=== PATIENT | male | born 1950 | race Caucasian/White ===

== ENCOUNTER → 2016-06-07 | Outpatient (CLI) | payer MEDICAID ==
[2016-06-07 07:53] LABS: Basophils # (A) 0.1 k/uL (0-0.2); Basophils % (A) 2 %; CH 31.7; CHCM 35.1; Eosinophils # (A) 0.2 k/uL (0-0.7); Eosinophils % (A) 3 %; HCT 45.4 % (39.0-53.0); HDW 2.69; HGB 15.1 gm/dL (13.0-17.5); Luc # (Auto) 0.07; Luc % (Auto) 1; Lymphocytes # (A) 2.1 k/uL (1.0-4.8); Lymphocytes % (A) 37 %; MCH 30.3 pg (25.0-35.0); MCHC 33.3 g/dL (31.0-37.0); MCV 90.9 fL (80.0-100.0); Mean Platelet Volume 6.9; Monocytes # (A) 0.3 k/uL (0-1.0); Monocytes % (A) 5 %; Neutrophils % (A) 52 %; RDW 12.9 % (11.5-15.5); WBC 5.7 k/uL (3.8-10.6); WBC (Perox) 5.84
[2016-06-07 10:30] LABS: Hemoglobin A1C 5.4 % (4.2-6.1)
[2016-06-07 12:29] LABS: ALT 63 U/L (21-72); AST 33 U/L (17-59); Alkaline Phosphatase 60 U/L (38-126); Anion Gap 12 mmol/L; Blood Urea Nitrogen 22 mg/dL (9-20); Calcium 9.4 mg/dL (8.4-10.2); Carbon Dioxide 29 mmol/L (22-30); Chloride 100 mmol/L (98-107); Cholesterol 182 mg/dL (<200); Glucose 118 mg/dL (74-99); HDL Cholesterol 80 mg/dL (40-60); Non-African American GFR(MDRD) >60 (>60 ml/min/1.73 sqM); Potassium 4.7 mmol/L (3.5-5.1); Sodium 141 mmol/L (137-145); Total Bilirubin 0.8 mg/dL (0.2-1.3); Total Protein 7.3 g/dL (6.3-8.2); Triglycerides 92 mg/dL (<150)
[2016-06-07 12:58] LABS: Prostate Specific Antigen 5.19 ng/mL (0.00-4.00)
== END | disposition home or self-care (01) ==
LOC: LABWHC1 07:21
PROVIDERS: ATTEND Internal Medicine Geriatric Medicine
DX: K21.9 Gastro-esophageal reflux disease without esophagitis (principal); E78.00 Pure hypercholesterolemia, unspecified; R73.9 Hyperglycemia, unspecified; N40.0 Benign prostatic hyperplasia without lower urinary tract symptoms; R00.1 Bradycardia, unspecified; M10.9 Gout, unspecified
CPT/HCPCS: 36415; 80053; 80061; 83036; 84153; 84439; 84443; 84550; 85025

== ENCOUNTER → 2017-02-14 | Outpatient (CLI) | payer MEDICAID ==
[2017-02-14 08:11] LABS: Basophils # (A) 0.1 k/uL (0-0.2); Basophils % (A) 1 %; CH 32.7; CHCM 34.8; Eosinophils # (A) 0.2 k/uL (0-0.7); Eosinophils % (A) 3 %; HDW 2.58; Luc % (Auto) 1; Lymphocytes # (A) 2.1 k/uL (1.0-4.8); Lymphocytes % (A) 24 %; MCH 31.4 pg (25.0-35.0); MCHC 33.3 g/dL (31.0-37.0); MCV 94.3 fL (80.0-100.0); Monocytes # (A) 0.4 k/uL (0-1.0); Monocytes % (A) 4 %; Neutrophils # (A) 5.8 k/uL (1.3-7.7); Neutrophils % (A) 67 %; RBC 5.09 m/uL (4.30-5.90); RDW 13.9 % (11.5-15.5); WBC 8.7 k/uL (3.8-10.6); WBC (Perox) 8.58
[2017-02-14 08:25] LABS: ALT 52 U/L (21-72); AST 23 U/L (17-59); Alkaline Phosphatase 63 U/L (38-126); Anion Gap 9 mmol/L; Blood Urea Nitrogen 19 mg/dL (9-20); Calcium 9.3 mg/dL (8.4-10.2); Carbon Dioxide 29 mmol/L (22-30); Chloride 101 mmol/L (98-107); Cholesterol 162 mg/dL (<200); Glucose 115 mg/dL (74-99); HDL Cholesterol 63 mg/dL (40-60); Non-African American GFR(MDRD) >60 (>60 ml/min/1.73 sqM); Potassium 4.3 mmol/L (3.5-5.1); Sodium 139 mmol/L (137-145); Total Bilirubin 0.9 mg/dL (0.2-1.3); Total Protein 7.2 g/dL (6.3-8.2)
[2017-02-14 12:29] LABS: Hemoglobin A1C 5.6 % (4.2-6.1)
== END | disposition home or self-care (01) ==
LOC: LABWHC1 07:51
PROVIDERS: ATTEND Internal Medicine Geriatric Medicine
DX: E78.00 Pure hypercholesterolemia, unspecified (principal); K21.9 Gastro-esophageal reflux disease without esophagitis; I10 Essential (primary) hypertension; R73.9 Hyperglycemia, unspecified; R00.1 Bradycardia, unspecified
CPT/HCPCS: 36415; 80053; 80061; 83036; 84439; 84443; 85025

== ENCOUNTER → 2017-02-21 | Outpatient (CLI) | payer MEDICAID ==
--- NOTE | 2017-02-21 08:53 | US ---
EXAMINATION TYPE: US abdomen complete DATE OF EXAM: 02/21/2017 COMPARISON: NONE CLINICAL HISTORY: RUQ Abdominal Tenderness R10.813. Cholecystectomy EXAM MEASUREMENTS: Liver Length: 19.1 cm Gallbladder Wall: Surgically absent CBD: 0.4 cm Spleen: 11.7 cm Right Kidney: 11.5 x 5.1 x 4.6 cm Left Kidney: 12.2 x 6.4 x 5.4 cm Pancreas: Obscured by bowel gas Liver: Coarse, heterogeneous echotexture. Enlarged Gallbladder: Surgically absent Evidence for sonographic De La O's sign: No CBD: wnl as visualized, distal portion obscured by bowel gas Spleen: wnl Right Kidney: No hydronephrosis or masses seen Left Kidney: No hydronephrosis or masses seen Upper IVC: wnl Abd Aorta: wnl The intrahepatic portion of the IVC and visualized portions of the proximal abdominal aorta are withi n normal limits. Common bile duct is unremarkable. The spleen is unremarkable. Kidneys are symmetric and free of hydronephrosis. No renal lesions are seen. IMPRESSION: 1. Fatty liver with hepatomegaly.
== END | disposition home or self-care (01) ==
LOC: RADUSWWP 07:51
PROVIDERS: ATTEND Internal Medicine Geriatric Medicine
DX: K76.0 Fatty (change of) liver, not elsewhere classified (principal); R10.813 Right lower quadrant abdominal tenderness
CPT/HCPCS: 76700

== ENCOUNTER 2017-04-01 09:42 | Day surgery (SDC) | payer MEDICAID ==
[2017-03-29 08:38] VITALS: BMI 34.2
[2017-04-01 11:20] VITALS: TEMP 98.4
[2017-04-01] MEDS ORDERED: LIDOCAINE 1% 20 ML VIAL (10MG/ML) FOR IV START INTRADERMA ONE (11:25)
[2017-04-01] MEDS: LACTATED RINGERS 1,000 ML IV SCH ×2 (11:27→12:18)
[2017-04-01 11:29] LABS: Glucose,Whole Blood 96 mg/dL (75-99)
[2017-04-01] MEDS ORDERED: PROPOFOL 10 MG/ML 20 ML VIAL IV ONE (12:20)
--- NOTE | 2017-04-01 12:24 | P.GSHP ---
History of Present Illness H&P Date: 04/01/17 Chief Complaint: Screening colonoscopy This is a 66-year-old male referred from Dr. Meek. Patient presents today for screening colonoscopy. He denies any significant complaints. 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 Past Anesthesia/Blood Transfusion Reactions: No Reported Reaction Smoking Status: Never smoker - Past Family History Mother Family Medical History: No Reported History Medications and Allergies Home Medications Medication Instructions Recorded Confirmed Type Irbesartan/Hydrochlorothiazide 1 each PO DAILY 06/21/14 04/01/17 History [Avalide 300-12.5 mg Tablet] Rosuvastatin Calcium [Crestor] 20 mg PO DAILY 06/21/14 03/29/17 History Aspirin [Adult Low Dose Aspirin EC] 81 mg PO DAILY 03/31/15 03/29/17 History metFORMIN HCL [Glucophage] 500 mg PO BID 03/29/17 03/29/17 History Allergies Allergy/AdvReac Type Severity Reaction Status Date / Time No Known Allergies Allergy Verified 03/29/17 08:16 Surgical - Exam Vital Signs Temp Pulse Resp BP Pulse Ox 98.4 F 65 20 147/86 97 04/01/17 11:11 04/01/17 11:11 04/01/17 11:11 04/01/17 11:11 04/01/17 11:11 - General well developed, no distress - Eyes PERRL - ENT normal pinna - Neck no masses - Respiratory normal expansion - Cardiovascular Rhythm: regular - Abdomen Abdomen: soft, non tender Assessment and Plan Assessment: We'll perform screening colonoscopy.
--- NOTE | 2017-04-01 12:38 | P.OP ---
Date of Procedure: 04/01/17 Preoperative Diagnosis: Screening colonoscopy Postoperative Diagnosis: Screening colonoscopy Procedure(s) Performed: Colonoscopy Anesthesia: MAC Surgeon: Jj Gardner Pathology: none sent Condition: stable Disposition: PACU Description of Procedure: PROCEDURE: The patient was placed on the endoscopy table in the lateral position. Digital rectal examination was performed which revealed no abnormalities. The prostate was symmetrical without nodules. Flexible colonoscope was then placed in the patient's anus and passed throughout the entire colon. The ileocecal valve was visualized. The cecum, ascending, transverse, descending and sigmoid colon were normal. The rectum was normal as well. There were no masses, polyps or diverticula noted in the entire colon. SUMMARY OF FINDINGS: Normal colonoscopy.
[2017-04-01 12:46] VITALS: RESP 16
[2017-04-01 12:47] LABS: Glucose,Whole Blood 114 mg/dL (75-99)
[2017-04-01 12:55] VITALS: BP 134/79; PULSE 79
== END 2017-04-01 13:09 | disposition home or self-care (01) ==
LOC: ORWHC2ENDO 09:42
PROVIDERS: ATTEND Surgery
DX: Z12.11 Encounter for screening for malignant neoplasm of colon (principal); I10 Essential (primary) hypertension; E78.5 Hyperlipidemia, unspecified; E11.9 Type 2 diabetes mellitus without complications; Z79.82 Long term (current) use of aspirin; Z79.84 Long term (current) use of oral hypoglycemic drugs; Z79.899 Other long term (current) drug therapy; Z98.1 Arthrodesis status
CPT/HCPCS: G0121; J2704

== ENCOUNTER → 2017-12-17 | Outpatient (CLI) | payer MEDICAID ==
--- NOTE | 2017-12-17 15:20 | XR ---
EXAMINATION TYPE: XR lumbosacral spine min 4V DATE OF EXAM: 12/17/2017 COMPARISON: None HISTORY: Low back pain TECHNIQUE: Five-view lumbar spine FINDINGS: There 5 lumbar-type vertebral bodies. Pedicles are intact T12 ribs are rudimentary. Mild fa cet degenerative changes present L4-5 L5-S1. Disc space narrowing is L4-5 L5-S1. Remaining disc heigh ts are preserved. Vertebral body heights are preserved. IMPRESSION: 1. Mild degenerative disc changes and facet changes lower lumbar spine.
== END | disposition home or self-care (01) ==
LOC: RADXRMAIN 08:15
PROVIDERS: ATTEND Internal Medicine Geriatric Medicine
DX: M47.897 Other spondylosis, lumbosacral region (principal)
CPT/HCPCS: 72110

== ENCOUNTER → 2018-01-28 | Outpatient (CLI) | payer MEDICAID ==
--- NOTE | 2018-01-28 11:14 | MR ---
EXAMINATION TYPE: MR lumbar spine wo con DATE OF EXAM: 01/28/2018 COMPARISON: NONE HISTORY: Low back pain TECHNIQUE: T1 and T2 axial and sagittal images of the lumbar spine are submitted. FINDINGS: There is no abnormal signal seen within the visualized spinal cord or paraspinal soft tissu es. Marrow signal is heterogeneous. There is a vertebral body hemangioma T12 and L2. At L1-2 there is circumferential disc bulging is seen. There is mild effacement of thecal sac but no spinal central stenosis or foraminal encroachment. At L2-3 there is degenerative disc disease with mild circumferential disc bulging but no central sten osis. Neural foramina demonstrate no evidence of encroachment. At L3-4 there is degenerative disc disease. There is broad-based central and right paracentral disc b ulging moderate effacement of thecal sac and mild central stenosis. Advanced facet arthropathy and li gamentum flavum hypertrophy are noted and there is moderate right-sided and mild left-sided foraminal encroachment. At L4-5 there is there is a grade 1 anterolisthesis which is likely secondary to severe facet arthrop athy with hypertrophy of the ligamentum flavum. Broad-based central disc bulging results in mild to m oderate central stenosis. Mild bilateral foraminal encroachment. At L5-S1 there is there is facet arthropathy with no disc herniation or canal stenosis. Neural forami na are patent. IMPRESSION: 1. Multilevel degenerative disc disease with multilevel disc bulging. Findings result in mild central stenosis L3-L4 and mild to moderate central stenosis L4-L5. 2. Grade 1 anterolisthesis L4 and L5 appears degenerative. 3. Nonspecific heterogeneous marrow signal be seen with marrow redistribution. If there is a history of malignancy metastasis would be in the differential diagnosis but is felt less likely correlate cli nically. Correlate clinically to exclude lymphoproliferative disorder or blood dyscrasia.
== END | disposition home or self-care (01) ==
LOC: RADMRIMAIN 08:14
PROVIDERS: ATTEND Orthopaedic Surgery Orthopaedic Surgery of the Spine
DX: M48.061 Spinal stenosis, lumbar region without neurogenic claudication (principal); M51.26 Other intervertebral disc displacement, lumbar region; M43.16 Spondylolisthesis, lumbar region; M51.36 Other intervertebral disc degeneration, lumbar region
CPT/HCPCS: 72148

== ENCOUNTER → 2018-01-28 | Outpatient (CLI) | payer MEDICAID ==
--- NOTE | 2018-01-28 16:34 | CONS ---
CONSULTATION Consultation note for sleep apnea. 67-year-old male patient. Primary of Dr. Meek. Referred to me for sleep apnea evaluation. is very much concerned of sleep apnea knowing that the patient snores and has been having excessive fatigue and daytime sleepiness. The patient is going to bed around 9 p.m., wakes up 6:15 am in the morning. It takes him some time more than 30 minutes to fall asleep. He wakes up occasionally middle of the night around 2-3 times to urinate. He does not fall asleep while driving or performing the activities of day-to-day life. He is suffering from sciatica and is undergoing physical therapy for now. He also has history of hypertension, hyperlipidemia. No recent weight gain. Comorbid conditions include hypertension and hyperlipidemia. PAST MEDICAL HISTORY: Hypertension, hyperlipidemia, sciatica. SURGICAL HISTORY: Includes spinal fusion involving the cervical spine, rotator cuff surgery on the left shoulder and cholecystectomy. ALLERGIES: Not known. OUTPATIENT MEDICATION LIST: Includes Crestor, Avalide and he was given a prednisone burst taper regarding his sciatica. SOCIAL HISTORY: The patient is a nonsmoker. No history of alcohol. No IV drugs. FAMILY HISTORY: Negative for sleep apnea. REVIEW OF SYSTEMS: 12-point review of system was done. Positive findings are mentioned in history of present illness. PHYSICAL EXAMINATION: BP is 117/72, pulse 66, respirations 16, temperature 98.2, saturation 97% on room air. Weight is 228. Height is 5 feet 6 inches, neck size 18-1/2 inches. GENERAL APPEARANCE: Calm, comfortable. HEAD: Atraumatic, normocephalic. NECK: Supple. Mallampati class 3. There is no goiter or neck masses. LUNGS: Clear to auscultation. HEART: Sounds regular rate and rhythm. Normal S1, S2. No S3. No murmurs. ABDOMEN: Soft, nontender. No organomegaly. EXTREMITIES: No edema. No cyanosis or clubbing. IMPRESSION: 1. Snoring with questionable sleep apnea. Needs further investigation. 2. Cruger score of 3. 3. Hypertension. 4. Hyperlipidemia. 5. Sciatica. PLAN: 1. Home sleep study to investigate for sleep apnea. 2. We will discuss results of sleep study accordingly and will make further recommendations. 3. Encourage weight loss. 4. Pain control regarding sciatica. 5. Implement good sleep hygiene measures. 6. Will continue to follow. MMODL / IJN: [id number] /
== END ==
LOC: SLEEP 15:29
PROVIDERS: ATTEND Internal Medicine Critical Care Medicine
DX: R06.83 Snoring (principal); I10 Essential (primary) hypertension; E78.5 Hyperlipidemia, unspecified; M54.30 Sciatica, unspecified side; Z79.899 Other long term (current) drug therapy
CPT/HCPCS: 99211

== ENCOUNTER → 2018-02-21 | Outpatient (CLI) | payer MEDICAID ==
[2018-02-21 09:35] LABS: Basophils % (A) 1 %; Eosinophils # (A) 0.2 k/uL (0-0.7); Eosinophils % (A) 3 %; HCT 45.7 % (39.0-53.0); HGB 15.2 gm/dL (13.0-17.5); Lymphocytes # (A) 1.5 k/uL (1.0-4.8); Lymphocytes % (A) 29 %; MCH 30.7 pg (25.0-35.0); MCHC 33.3 g/dL (31.0-37.0); MCV 92.1 fL (80.0-100.0); Mean Platelet Volume 6.3; Monocytes # (A) 0.2 k/uL (0-1.0); Monocytes % (A) 5 %; Neutrophils # (A) 3.2 k/uL (1.3-7.7); Neutrophils % (A) 61 %; Platelet Count 283 k/uL (150-450); RBC 4.97 m/uL (4.30-5.90); RDW 13.1 % (11.5-15.5); WBC 5.3 k/uL (3.8-10.6)
[2018-02-21 09:46] LABS: ALT 48 U/L (21-72); AST 30 U/L (17-59); Albumin 4.5 g/dL (3.5-5.0); Alkaline Phosphatase 50 U/L (38-126); Anion Gap 10 mmol/L; Blood Urea Nitrogen 20 mg/dL (9-20); Calcium 9.7 mg/dL (8.4-10.2); Carbon Dioxide 25 mmol/L (22-30); Chloride 105 mmol/L (98-107); Cholesterol 159 mg/dL (<200); Glucose 113 mg/dL (74-99); HDL Cholesterol 58 mg/dL (40-60); LDL Cholesterol,Calculated 84 mg/dL (0-99); Potassium 4.3 mmol/L (3.5-5.1); Sodium 140 mmol/L (137-145); Total Bilirubin 0.8 mg/dL (0.2-1.3); Total Protein 7.3 g/dL (6.3-8.2); Triglycerides 87 mg/dL (<150)
[2018-02-21 09:59] LABS: T4, Free (Free Thyroxine) 0.93 ng/dL (0.78-2.19)
[2018-02-21 18:35] LABS: Hemoglobin A1C 5.5 % (4.0-6.0)
== END | disposition home or self-care (01) ==
LOC: LABWHC1 08:45
PROVIDERS: ATTEND Internal Medicine Geriatric Medicine
DX: Z00.00 Encounter for general adult medical examination without abnormal findings (principal); K21.9 Gastro-esophageal reflux disease without esophagitis; K75.81 Nonalcoholic steatohepatitis (NASH); R73.9 Hyperglycemia, unspecified; E78.00 Pure hypercholesterolemia, unspecified; R97.20 Elevated prostate specific antigen [PSA]
CPT/HCPCS: 36415; 80053; 80061; 83036; 84153; 84439; 84443; 85025

== ENCOUNTER → 2018-03-18 | Outpatient (CLI) | payer MEDICAID ==
[2018-03-17 14:35] VITALS: BMI 34.2
[2018-03-18 13:29] VITALS: BP 138/91; PULSE 69; RESP 18
--- NOTE | 2018-03-18 14:30 | P.PAINPG ---
Subjective Progress Note Date: 03/18/18 This is the initial consultation visit for this 67 years old male with a chronic history of severe low back pain, with radiation to the right lower extremity started more than 2 years ago, but the intensity of the pain increased significantly over the last 6 months, the pain is constant and increased with any activities especially driving or golfing, intensity of the pain interfering with his quality of life, the pain starts in the low back area radiating to the buttock, then down to the right calf , he denies any motor or sensory deficit he denies any fever or night sweats and there is no change in the bowel movements or urination, his done massage therapy and chiropractics without any significant improvement. Objective - Vital Signs Vital signs: Vital Signs Temp Pulse 69 03/18/18 13:18 Resp 18 03/18/18 13:18 BP 138/91 03/18/18 13:18 Pulse Ox 97 03/18/18 13:18 Intake & Output 03/17/18 03/18/18 03/18/18 18:59 06:59 18:59 Weight 102.058 kg - Exam Social history : not smoker , NO ETOH , NO Illegal drugs us Review of Systems : 1- Constitutional : no chills , no fever , no night sweats , 2- Ears : no ear discharge , no change in hearing 3-Nose, Mouth ,Throat ; no bleeding gums, no sore throat , no epistaxis , 4-Cardiovascular : Denies chest pain, , no orthopnea , no palpitation 5-Respiratory : Denies cough , no dyspnea , no hemoptysis 6-Gastrointestinal :, no change in bowel habits , no coffee- ground emesis . 7-Genitourinary : No hematuria , no discharge , no incontinence, 8-Musculoskeletal : no gait dysfunction , report low back pain with radiation to the right lower extremity , 9- Neurological : no ataxia , no tremor , no sezure , 10-Psychatric , no suicidal ideation no hallucination 11- Endocrine : no cold intolerence , no polyuria , no polydypsia , 12-Hematologic : no easy bleeding , no easy brusing , 13-Allergic / immunology : no angioedema , no wheezing ,no allergic rhinitis 14-Integumentary : no brttle nails , no change hair / nails , no foot/leg ulcers . Physical Examinations : 1-Constitutional : Cooperative , not in acute distress . 2- musculoskeltal: normal gait Lumber spine moter stegnth lower extremities ,thigh and legs 5/5 Right side , 5/5 Left side deep tendon reflexes : normal Knee Jerk , normal ankle Jerk positive lumber facet Loading Test on the right side Range of motion of the lumbar spine Flexion 60 degrees, extension 30 degrees strait leg raising test , positive at 60 degree Fabere test positive RT , negative left Sever tenderness over the Sacroiliac joint on the Rigt side MRI [facility] in 01/28/2018l= 10-3 degenerative disc disease and disc bulging, L3 4 degenerative disc disease and broad-based central right paracentral disc bulging and advanced facet arthropathy, L4 5 grade 1 anterolisthesis and facet arthropathy and moderate central canal stenosis, L5- S1 facet arthropathy Assessment and Plan Plan: Assessment and plan=1-lumbar radiculopathy. 2-lumbar degenerative disc disease. 3-lumbar spondylosis with lumbar facet arthropathy. Patient will be a good candidate to have lumbar epidural steroid injection under fluoroscopy guidance, at L4 5 level ( right paramedian approach ) , as patient continued to have pain after the lumbar epidural steroid injections and then he will be good candidate to target the facet joint problem by doing diagnostic medial branch block lumbar area Time with Patient: Greater than 30 PQRS Measure Charge Sheet Measure #130: Documentation of Current Meds in Medical Chart: Patient's medications documented in chart Measure #226: Tobacco Use: Screen & Cessation Intervention: Pt not a tobacco user Measure #111: Pneumonia Vaccination: Pneumococcal vaccine NOT administered or previously given Measure #47: Advance Care Plan: Advance care planning discussed & documented, plan or surrogate given Measure #412: Opioid Treatment Agreement: No documentation of signed opioid treatment agreement Measure #408: Opioid Therapy Follow-up Evaluation: Patient had NO f/u eval minimum every 3 months during opioid therapy Measure #317: Preventitive Care & Scrn High Bld Press & F/U: Normal blood pressure, f/u not required Measure #128: Body Mass Index (BMI) Screening & Follow-up: BMI documented ABOVE normal parameters - f/u documented Measure #131: Pain Assessment & Follow-up: Pain positive & plan documented, Follow-up scheduled Measure #431: Unhealthy Alcohol Use Preventative Care & Scrn: Patient not identified as an unhealthy alcohol user PQRS Narrative: Smoking Status Former smoker Do You Want the Pneumonia Vaccine Up to Date Vaccine AT THIS TIME? Blood Pressure 138/91 Pain Intensity [Right Lower 4 Back] Hx Alcohol Use (MH) No Home Medications: Ambulatory Orders Irbesartan/Hydrochlorothiazide [Avalide 300-12.5 mg Tablet] 1 each PO DAILY 01/25 Rosuvastatin Calcium [Crestor] 20 mg PO DAILY 06/21/14 Aspirin [Adult Low Dose Aspirin EC] 81 mg PO DAILY 03/31/15 metFORMIN HCL [Glucophage] 500 mg PO DAILY 03/29/17 Controlled Substance Measures - Controlled Substance Measures Is patient prescribed a controlled substance at discharge?: No When asked, does pt state using other controlled substances?: No If prescribed controlled substance>3 days was MAPS reviewed?: No If Rx opioid, was Start Talking consent form obtained?: No If opioid is for acute pain is fill amount 7 days or less?: No Was information provided regarding opioid addiction?: No
== END | disposition home or self-care (01) ==
LOC: PNWHC3 13:13
PROVIDERS: ATTEND Specialist
DX: G89.29 Other chronic pain (principal); M54.5 Low back pain; M51.16 Intervertebral disc disorders with radiculopathy, lumbar region; M47.26 Other spondylosis with radiculopathy, lumbar region; M46.86 Other specified inflammatory spondylopathies, lumbar region; Z87.891 Personal history of nicotine dependence
CPT/HCPCS: 99211

== ENCOUNTER → 2018-04-07 | Day surgery (SDC) | payer MEDICAID ==
[2018-03-31 10:29] VITALS: BMI 34.2
[~2018-04-07] MED LIST: SODIUM CHLORIDE 0.9% 500 ML 500 ML IV ONE; SODIUM CHLORIDE 0.9% 500 ML 500 ML IV SCH
[2018-04-07 07:01] VITALS: TEMP 98
[2018-04-07 08:07] LABS: Glucose,Whole Blood 117 mg/dL (75-99)
--- NOTE | 2018-04-07 08:08 | P.PCN ---
Date of Procedure: 04/07/18 Procedure(s) Performed: PREOPERATIVE DIAGNOSIS: 1- Lumbar Degenerative Disc Diseases 2-Lumbar spondylosis with Facet arthropathy without myelopathy POSTOPERATIVE DIAGNOSIS: 1-Lumber Degenerative Disc Diseases 2-Lumbar spondylosis with Facet arthropathy without myelopathy PROCEDURE 1. Lumbar epidural steroid injection under fluoroscopic guidance at the L4-5 level. ( Right Paramedian approach ) 2. Lumbar epidurogram. ANESTHESIA: Local with 1% lidocaine 3 ml and , moderate sedation with intravenous Versed 1 mg ,and fentanyle 50 Mcg EBL: Minimal PROCEDURE INDICATION: The patient with low back pain and radiculitis symptoms unresponsive to conservative treatment. Fluoroscopy was used to optimize visualization of the needle placement and to maximize safety. PROCEDURE DESCRIPTION / TECHNIQUE: The patient was seen and identified in the preoperative area. Risks, benefits , complications including but not limited to infections ,bleeding ,allergic reaction to the medications ,nerve damage and not complete pain releife , and alternatives were discussed with the patient. The patient agreed to proceed with the procedure and signed the consent. IV was started, and vital signs were stable. Patient was taken to the OR and time out was completed. The patient was placed in the prone position on procedure table and a pillow was placed under the abdomen to reduce lumbar lordosis. The lumbosacral area was prepped and draped in the usual sterile fashion.ere closely monitored during the procedure. Conscious sedation was used during the procedure to decrease patients anxiety. Vital signs was monitered during the entire procedure. Using anterior-posterior fluoroscopy, the L4-5 interlaminar space was identified and the skin over this site was marked and then infiltrated with 1% lidocaine subcutaneously. Subsequently, a 20-gauge Tuohy epidural needle was inserted and advanced toward the epidural space using the ``Loss of resistance technique and guided by AP and lateral fluoroscopy. The correct needle position in the epidural space was verified with the injection of 2 mL of the water soluble contrast dye Isovue 200 contrast and observing an excellent epidurogram with the epidural spread of the dye ( mainley toward the Right side ), after negative aspiration for blood and CSF and in the absence of paresthesias. Again after negative aspiration, a 6 ml mixture containing 40 mg of Depo-medrol , and 2 ml of preservative free Normal Saline, and 2 ml of preservative free lidocaine 1% solution was injected and a washout of epidurogram was seen. Needle was withdrawn intact, skin was cleansed, and bandages were applied. COMPLICATIONS: None DISPOSITION / PLANS: The patient was placed in a supine position and transferred to the recovery area in a stable condition for observation. There was no evidence of lower extremity motor or sensory deficit after the procedure. Patient was discharged from the recovery room after meeting discharge criteria. Home discharge instructions were given to the patient by the staff. The patient was reexamined prior to discharge. The patient will schedule a follow up in the clinic in 2-4 weeks to evaluate his response to the injection today if he continued to have pain ,then we will consider doing diagnostic medial branch block lumbar area.
[2018-04-07 08:21] VITALS: RESP 20
--- NOTE | 2018-04-07 08:25 | FL ---
EXAMINATION TYPE: FL guided pain mgmt statistic DATE OF EXAM: 04/07/2018 COMPARISON: NONE HISTORY: Back pain TECHNIQUE: Fluoroscopy. FINDINGS/IMPRESSION: Fluoroscopic guidance was provided during procedure performed by Dr. Garsia. A total of 2 seconds of fluoroscopic time was utilized during the procedure and 1 spot images was ac quired demonstrating localization of the lumbar spine.
[2018-04-07 08:36] VITALS: BP 148/79; PULSE 68
== END | disposition home or self-care (01) ==
LOC: ORPAIN 06:48
PROVIDERS: ATTEND Specialist
DX: M51.16 Intervertebral disc disorders with radiculopathy, lumbar region (principal); M47.26 Other spondylosis with radiculopathy, lumbar region; M46.96 Unspecified inflammatory spondylopathy, lumbar region
CPT/HCPCS: 62323; J2250; J1030; J3010; Q9966

== ENCOUNTER → 2018-04-15 | Outpatient (CLI) | payer MEDICAID ==
--- NOTE | 2018-04-15 20:12 | PN ---
PROGRESS NOTE This patient is 67, was referred to me for evaluation and treatment of obstructive sleep apnea. The patient had loud snoring and he was having some degree of sleepiness and fatigue during the day. He has hypertension, hyperlipidemia and history of sciatica. Based on his history, I performed a home sleep study which came back positive. The patient was found to have moderately severe MARISSA with an AHI of 23. He also had demonstrated mild nocturnal oxygen desaturation where the patient spent around 4% of sleep time at a pulse ox of less than 90%. On today's evaluation, the patient reports that he is feeling better. He has been able to lose some weight and he reports that weight loss along with avoiding alcohol use has significantly improved his sleep quality to the point where he is not feeling any major hypersomnia or sleepiness during the day. I discussed with him treatment options. However the patient wanted to go conservative weight loss and he was not interested in any form of oral appliance or CPAP therapy for now. He states that he was feeling better. He was not having major tiredness and sleepiness during the day. His snoring was still present. REVIEW OF SYSTEMS: 12-point review of system was done. Positive findings are mentioned above. Less sleepy compared to his last evaluation losing weight. No nocturnal chest pain, heartburn, shortness of breath or any other complaints. PHYSICAL EXAMINATION: VITAL SIGNS: Temperature 98.3, pulse 96, respirations 16, blood pressure is 123/78. Height is 5 feet 6 inches, weight is 225 pounds. BMI 36.3. GENERAL APPEARANCE: Calm, comfortable. Head is atraumatic, normocephalic. Neck is short, supple, crowding of posterior pharynx. There is no goiter or neck masses. Lungs, diminished otherwise clear. HEART: Sounds regular rhythm. No normal S1, S2. No S3, S4. No murmurs. ABDOMEN: Soft, nontender. EXTREMITIES: No edema. No cyanosis or clubbing. IMPRESSION: 1. Obstructive sleep apnea, moderate to severe AHI of 23, worsened while supine. 2. Mild nocturnal oxygen desaturation. 3. Hypersomnia, improved. 4. Obesity with interval few pounds weight loss. 5. Hypertension. 6. Hyperlipidemia. PLAN: Ideally I would like to have this patient on the CPAP. The patient was not interested in CPAP therapy at this point in time. He was interested in weight loss. He has already quit drinking alcohol at night time. He has lost a few pounds. He was feeling better. I suggested losing more weight and come in for reevaluation in a year's time, earlier if needed, if he becomes more symptomatic. CHARAN / MARCO ANTONIO: [id number] /
== END ==
LOC: SLEEP 13:52
PROVIDERS: ATTEND Internal Medicine Critical Care Medicine
DX: G47.33 Obstructive sleep apnea (adult) (pediatric) (principal); E66.9 Obesity, unspecified; I10 Essential (primary) hypertension; E78.5 Hyperlipidemia, unspecified; Z99.89 Dependence on other enabling machines and devices

== ENCOUNTER → 2018-04-21 | Outpatient (CLI) | payer MEDICAID ==
[2018-04-21 14:54] VITALS: BP 125/85; PULSE 69; RESP 16
--- NOTE | 2018-04-21 15:21 | P.PN ---
Subjective Progress Note Date: 04/21/18 This is follow up visit, for this 67 years old male with a chronic history of severe low back pain, with radiation to the right lower extremity started more than 2 years ago, but the intensity of the pain increased significantly over the last 6 months, the pain is constant and increased with any activities especially driving or golfing, intensity of the pain interfering with his quality of life, the pain starts in the low back area radiating to the buttock, then down to the right calf , he denies any motor or sensory deficit he denies any fever or night sweats and there is no change in the bowel movements or urination, his done massage therapy and chiropractics without any significant improvement. We have done lumbar epidural steroid injections 2 , she reported that he had only 4 days of pain relief after each injection, he continued to have severe low back pain Physical Examinations : 1-Constitutional : Cooperative , not in acute distress . 2- musculoskeltal: normal gait Lumber spine moter stegnth lower extremities ,thigh and legs 5/5 Right side , 5/5 Left side deep tendon reflexes : normal Knee Jerk , normal ankle Jerk positive lumber facet Loading Test on the right side Range of motion of the lumbar spine Flexion 60 degrees, extension 30 degrees strait leg raising test , positive at 60 degree Fabere test positive RT , negative left Sever tenderness over the Sacroiliac joint on the Rigt side MRI [facility] in 01/28/2018l= 10-3 degenerative disc disease and disc bulging, L3 4 degenerative disc disease and broad-based central right paracentral disc bulging and advanced facet arthropathy, L4 5 grade 1 anterolisthesis and facet arthropathy and moderate central canal stenosis, L5- S1 facet arthropathy Assessment and plan=1-lumbar radiculopathy. 2-lumbar degenerative disc disease. 3-lumbar spondylosis with lumbar facet arthropathy. Patient continued to have pain after lumbar epidural he will be good candidate to have diagnostic medial branch block lumbar area bilaterally and L3- 4/ L4 5 /and L5-S1 PQRS Measure Charge Sheet Measure #130: Documentation of Current Meds in Medical Chart: Patient's medications documented in chart Measure #226: Tobacco Use: Screen & Cessation Intervention: Pt not a tobacco user Measure #111: Pneumonia Vaccination: Pneumococcal vaccine previously given Measure #47: Advance Care Plan: Advance care planning discussed & documented, plan or surrogate given Measure #412: Opioid Treatment Agreement: No documentation of signed opioid treatment agreement Measure #408: Opioid Therapy Follow-up Evaluation: Patient had NO f/u eval minimum every 3 months during opioid therapy Measure #317: Preventitive Care & Scrn High Bld Press & F/U: Normal blood pressure, f/u not required Measure #128: Body Mass Index (BMI) Screening & Follow-up: BMI documented ABOVE normal parameters - f/u documented Measure #131: Pain Assessment & Follow-up: Pain positive & plan documented, Follow-up scheduled Measure #431: Unhealthy Alcohol Use Preventative Care & Scrn: Patient not identified as an unhealthy alcohol Objective - Vital Signs Vital signs: Vital Signs Temp Pulse 69 04/21/18 14:37 Resp 16 04/21/18 14:37 BP 125/85 04/21/18 14:37 Pulse Ox 99 04/21/18 14:37 Intake & Output 04/20/18 04/21/18 04/21/18 18:59 06:59 18:59 Weight 98.883 kg
== END | disposition home or self-care (01) ==
LOC: PNWHC3 14:02
PROVIDERS: ATTEND Specialist
DX: M51.16 Intervertebral disc disorders with radiculopathy, lumbar region (principal); M47.26 Other spondylosis with radiculopathy, lumbar region; M46.96 Unspecified inflammatory spondylopathy, lumbar region
CPT/HCPCS: 99211

== ENCOUNTER 2018-05-01 06:26 | Day surgery (SDC) | payer MEDICAID ==
[2018-04-30 08:27] VITALS: BMI 33.9
[~2018-05-01 06:26] MED LIST changes: -SODIUM CHLORIDE 0.9% 500 ML 500 ML IV ONE
[2018-05-01 06:58] LABS: Glucose,Whole Blood 105 mg/dL (75-99)
[2018-05-01 06:59] VITALS: RESP 16; TEMP 97.6
[2018-05-01] MEDS ORDERED: LACTATED RINGERS 1,000 ML IV ONE (06:59)
--- NOTE | 2018-05-01 08:06 | P.PCN ---
Date of Procedure: 05/01/18 Procedure(s) Performed: PREOPERATIVE DIAGNOSIS : 1- Lumbar spondylosis with Facet Arthropathy without myelopathy . 2- Lumber degenerative disc disease POSTOPERATIVE DIAGNOSIS: 1- Lumbar spondylosis with Facet Arthropathy without myelopathy . 2- Lumber degenerative disc disease PROCEDURE: Diagnostic bilateral L3 -4 , L4 -5 , and L5-S1 medial branch block under fluoroscopy ANESTHESIA: Local with Ropivacain 0.5 % 6 ml , moderate sedation with intravenous Versed 2 mg and Fentanyl 100 mcg. EBL: Minimal COMPLICATION: None. IV FLUIDS: 100 mL of normal saline. PROCEDURE INDICATION: Chronic low back pain secondary to Facet arthropathy unresponsive to conservative treatment. PROCEDURE DESCRIPTION: the patient was seen and identified in the preop holding area , risks and benefits and possible complications of the procedure and alternative were discussed with the patient, and the patient agreed to proceed with the procedure and signed the consent IV was started and vital signs monitored during the procedure and fluoroscopy was used to maximize the benefit and accuracy of the needle placement, and sedation was given to decrease patient anxiety, patient was taken to the procedure room and placed in prone position vital signs monitored in the back prepped with chlorhexidine X3 then under strict sterile technique using a right oblique fluoroscopy ,the junction of the transverse process and the superior articulating process of the right L3- 4 , L4- 5, and L5-S1 vertebra which corresponding to the fluoroscopy image of the eye of the Neal dog on the block side for the medial branches and subsequently , after local infiltration of skin and subcu tissuies with Ropivacaine 0.5 % , one mL at each level , then 22-gauge Quincke-type needles , 3 needle was used , each one of them placed at the junction of the base of the transverse process and the superior articular process at the appropriate level, and the needle was advanced until the periosteum contacted, needle placement confirmed with AP oblique and lateral view and after appropriate needle placement confirmed, and after negative aspiration for heme and CSF and there was no paresthesia 1-1/2 mL of Ropivacaine 0.5% mixed with 20 mg Depo-medrol , then half mL injected at each level after negative aspiration the needle subsequently removed and the same procedure repeated for the left side at left side at L3-4, L4- 5 and L5-S1 levels. At the end of the procedure and the needles removed and a bandage applied after the skin was cleaned the cleaning solution patient taken to recovery room in stable condition and monitors in the recovery room for 20-30 minutes and discharged home in stable condition after discharge criteria met and patient will follow up with the pain clinic in 2-4 weeks
[2018-05-01] MEDS ORDERED: IV FLUID CONTINUATION 600 ML IV ONE (08:12)
[2018-05-01 08:36] VITALS: BP 153/75; PULSE 68
--- NOTE | 2018-05-01 08:36 | FL ---
EXAMINATION TYPE: FL guided pain mgmt statistic DATE OF EXAM: 05/01/2018 HISTORY: Pain bilat lumbar facet blks. Dr. Pan. 7 sec fl time. 4 pics scanned
== END 2018-05-01 08:46 | disposition home or self-care (01) ==
LOC: ORPAIN 06:26
PROVIDERS: ATTEND Specialist
DX: M47.816 Spondylosis without myelopathy or radiculopathy, lumbar region (principal); M51.36 Other intervertebral disc degeneration, lumbar region; G89.29 Other chronic pain; I10 Essential (primary) hypertension
CPT/HCPCS: 64493; 64494; 64495; J2250; J1030; J3010; 99152

== ENCOUNTER → 2018-05-15 | Outpatient (CLI) | payer MEDICAID | END | disposition home or self-care (01) | LOC: RADMRIMAIN 06:59 | PROVIDERS: ATTEND Urology | DX: R97.20 Elevated prostate specific antigen [PSA] (principal) | CPT/HCPCS: 82565 ==

== ENCOUNTER → 2018-05-16 | Outpatient (CLI) | payer MEDICAID ==
--- NOTE | 2018-05-19 11:52 | MR ---
EXAMINATION TYPE: MR Prostate wo/w con DATE OF EXAM: 05/16/2018 COMPARISON: None IMAGE QUALITY: Good. INDICATION: Elevated PSA PSA: 4.8 ng/ml on February 21, 2018 Recent Biopsy and Date: None Pathology Report (If Applicable): N/A TECHNIQUE: Examination was performed using a 3T MRI without an endorectal coil. Multiparametric imaging was perf ormed with T2 multiplanar sequences, axial diffusion weighted imaging and dynamic contrast enhanced i maging, utilizing 10 mL intravenous Gadavist gadolinium contrast. FINDINGS: There is no clinically significant cancer identified. PROSTATE VOLUME: 4.1 cm SI x 4.5 cm AP x 5.7 cm LR Vol= 54.69 cc PSA DENSITY: 6.56 ng/ml/cc Peripheral zone shows some indistinct areas of hypointensity on ADC mapping without moderate to marke dly hypointense focal areas identified. No areas of increased signal on diffusion-weighted imaging ar e present. Transitional zone is overall heterogeneous without suspicious hypointense nodules on T2-weighted imag es. Prosthetic capsule is maintained. No suspicious adjacent adenopathy is seen. Seminal vesicles are fel t within normal limits. Bladder is poorly distended with wall thickness up to 8 mm and slight lobulation or trabeculation. No suspicious bowel dilatation is seen. No concerning pelvic fluid collection is noted. Visualized os seous structures are intact. IMPRESSION: Heterogeneous enlarged prostate gland without suspicious area identified. A focus of clinically significant cancer is not identified. Highest Assessment Category: PIRADS 2 MRI Stage: T0 N0 M0 based on review of pelvic images. False negative rates for MRI range from 5-20% depending on risk profile. Assessment Categories: 2 ? Low (clinically significant cancer is unlikely to be present) Locations: PZ = peripheral zone; TZ = transition zone CZ=central zone; AFS = anterior fibromuscular stroma a=anterior half (i.e. PZa=anterior half of peripheral zone); pm= posterior medial (i.e PZpm) pl = postero-lateral (i.e. PZpl); p = posterior half (i.e. TZp) ; a = anterior half (i.e TZa or P Za) Other: N=no or no; E= equivocal; Y=yes EPE = extraprostatic extension NVB = neurovascular bundle NA = not applicable/not available
== END | disposition home or self-care (01) ==
LOC: RADMRIMAIN 06:55
PROVIDERS: ATTEND Urology
DX: N40.0 Benign prostatic hyperplasia without lower urinary tract symptoms (principal)
CPT/HCPCS: 72197; A9585

== ENCOUNTER 2018-05-27 06:57 | Day surgery (SDC) | payer MEDICAID ==
[2018-05-23 16:09] VITALS: BMI 34.2
[2018-05-27 07:26] VITALS: TEMP 97.6
[2018-05-27] MEDS ORDERED: LACTATED RINGERS 1,000 ML IV ONE (07:26)
[2018-05-27] MEDS ORDERED: LIDOCAINE 1% 20 ML VIAL (10MG/ML) FOR IV START INTRADERMA ONE (07:26)
[2018-05-27 07:30] LABS: Glucose,Whole Blood 115 mg/dL (75-99)
--- NOTE | 2018-05-27 08:06 | P.PCN ---
Date of Procedure: 05/27/18 Procedure(s) Performed: PREOPERATIVE DIAGNOSIS : 1- Lumbar spondylosis with Facet Arthropathy without myelopathy . 2- Lumber degenerative disc disease POSTOPERATIVE DIAGNOSIS: 1- Lumbar spondylosis with Facet Arthropathy without myelopathy . 2- Lumber degenerative disc disease PROCEDURE: Diagnostic bilateral L3 -4 , L4 -5 , and L5-S1 medial branch block under fluoroscopy # 2nd ANESTHESIA: Local with Ropivacain 0.5 % 6 ml , moderate sedation with intravenous Versed 2 mg and Fentanyl 100 mcg. EBL: Minimal COMPLICATION: None. IV FLUIDS: 100 mL of normal saline. PROCEDURE INDICATION: Chronic low back pain secondary to Facet arthropathy unresponsive to conservative treatment. PROCEDURE DESCRIPTION: the patient was seen and identified in the preop holding area , risks and benefits and possible complications of the procedure and alternative were discussed with the patient, and the patient agreed to proceed with the procedure and signed the consent IV was started and vital signs monitored during the procedure and fluoroscopy was used to maximize the benefit and accuracy of the needle placement, and sedation was given to decrease patient anxiety, patient was taken to the procedure room and placed in prone position vital signs monitored in the back prepped with chlorhexidine X3 then under strict sterile technique using a right oblique fluoroscopy ,the junction of the transverse process and the superior articulating process of the right L3- 4 , L4- 5, and L5-S1 vertebra which corresponding to the fluoroscopy image of the eye of the Neal dog on the block side for the medial branches and subsequently , after local infiltration of skin and subcu tissuies with Ropivacaine 0.5 % , one mL at each level , then 25-gauge Quincke-type needles , 3 needle was used , each one of them placed at the junction of the base of the transverse process and the superior articular process at the appropriate level, and the needle was advanced until the periosteum contacted, needle placement confirmed with AP oblique and lateral view and after appropriate needle placement confirmed, and after negative aspiration for heme and CSF and there was no paresthesia 1-1/2 mL of Ropivacaine 0.5% mixed with 20 mg Kenalog , then half mL injected at each level after negative aspiration the needle subsequently removed and the same procedure repeated for the left side at left side at L3-4, L4- 5 and L5-S1 levels. At the end of the procedure and the needles removed and a bandage applied after the skin was cleaned the cleaning solution patient taken to recovery room in stable condition and monitors in the recovery room for 20-30 minutes and discharged home in stable condition after discharge criteria met and patient will follow up with the pain clinic in 2-4 weeks
[2018-05-27] MEDS ORDERED: IV FLUID CONTINUATION 1,000 ML IV ONE (08:11)
[2018-05-27 08:17] VITALS: RESP 18
--- NOTE | 2018-05-27 08:18 | FL ---
EXAMINATION TYPE: FL guided pain mgmt statistic DATE OF EXAM: 05/27/2018 CLINICAL HISTORY: Low back pain. TECHNIQUE: Fluoroscopy. COMPARISON: None. FINDINGS: Fluoroscopic guidance was provided during pain relief procedure performed by Dr. Clarke . A total of 13 seconds of fluoroscopic time was utilized during the procedure and 4 spot images are acquired. Images acquired shows needle localization at several levels in the lower lumbar spine. IMPRESSION: As Above.
[2018-05-27 08:27] VITALS: BP 136/83; PULSE 70
== END 2018-05-27 08:53 | disposition home or self-care (01) ==
LOC: ORPAIN 06:57
PROVIDERS: ATTEND Specialist
DX: G89.29 Other chronic pain (principal); M47.816 Spondylosis without myelopathy or radiculopathy, lumbar region; M51.36 Other intervertebral disc degeneration, lumbar region; Z79.82 Long term (current) use of aspirin
CPT/HCPCS: 64493; 64494; 64495; J2250; J3301; J3010; 99152

== ENCOUNTER → 2018-06-02 | Outpatient (CLI) | payer MEDICAID ==
[2018-06-02 11:50] VITALS: BP 151/96; PULSE 68; RESP 16
--- NOTE | 2018-06-02 12:18 | P.PN ---
Subjective Progress Note Date: 06/02/18 This is Follow up visit for this 67 years old male with a chronic history of severe low back pain, with radiation to the right lower extremity started more than 2 years ago, his diagnosed with lumbar radiculopathy and lumbar spondylosis with lumbar facet arthropathy, recently we have done diagnostic medial branch block lumbar area, L3/L4 5/L5-S1, his pain was 6/10 before the first diagnostic block at dropped to 0/10 after the diagnostic block, and the pain relief lasted for a few days, the second diagnostic medial branch block patient reported that his pain was 5/10 dropped to 0/10 immediately after the block, and patient was able to do activities of daily livings without any difficulty, the pain relief was short for few days only, patient here today to discuss the result and also to check if he is a good candidate for radiofrequency ablation of the medial branch, patient denies any change in the bowel movement or urination he denies any fever or night sweats he denies any motor or sensory deficit. Physical Examinations : 1-Constitutional : Cooperative , not in acute distress . 2- musculoskeltal: normal gait MRI [facility] in 01/28/2018l= 10-3 degenerative disc disease and disc bulging, L3 4 degenerative disc disease and broad-based central right paracentral disc bulging and advanced facet arthropathy, L4 5 grade 1 anterolisthesis and facet arthropathy and moderate central canal stenosis, L5- S1 facet arthropathy Assessment and plan=1-lumbar radiculopathy. 2-lumbar degenerative disc disease. 3-lumbar spondylosis with lumbar facet arthropathy. Patient had excellent pain relief after the diagnostic medial branch blockade would be good candidate for radiofrequency ablation of the medial branch lumbar area, procedure risk and benefits and alternatives discussed with the patient he agreed with the preced PQRS Measure Charge Sheet Measure #130: Documentation of Current Meds in Medical Chart: Patient's medications documented in chart Measure #226: Tobacco Use: Screen & Cessation Intervention: Pt not a tobacco user Measure #111: Pneumonia Vaccination: Pneumococcal vaccine NOT administered or previously given Measure #47: Advance Care Plan: Advance care planning discussed & documented, plan or surrogate given Measure #412: Opioid Treatment Agreement: No documentation of signed opioid treatment agreement Measure #408: Opioid Therapy Follow-up Evaluation: Patient had NO f/u eval minimum every 3 months during opioid therapy Measure #317: Preventitive Care & Scrn High Bld Press & F/U: The blood pressure above the normal limit he'll follow with his primary care (151/96 ) Measure #128: Body Mass Index (BMI) Screening & Follow-up: BMI documented ABOVE normal parameters - f/u documented Measure #131: Pain Assessment & Follow-up: Pain positive & plan documented, Follow-up scheduled Measure #431: Unhealthy Alcohol Use Preventative Care & Scrn: Patient not identified as an unhealthy alcohol user PQRS Narrative: - Controlled Substance Measures Is patient prescribed a controlled substance at discharge?: No When asked, does pt state using other controlled substances?: No If prescribed controlled substance>3 days was MAPS reviewed?: No If Rx opioid, was Start Talking consent form obtained?: No If opioid is for acute pain is fill amount 7 days or less?: No Was information provided regarding opioid addiction?: No Objective - Vital Signs Vital signs: Vital Signs Temp Pulse 68 06/02/18 11:42 Resp 16 06/02/18 11:42 BP 151/96 06/02/18 11:42 Pulse Ox 96 06/02/18 11:42 Intake & Output 06/01/18 06/02/18 06/02/18 18:59 06:59 18:59 Weight 101.151 kg
== END | disposition home or self-care (01) ==
LOC: PNWHC3 11:23
PROVIDERS: ATTEND Specialist
DX: G89.29 Other chronic pain (principal); M51.16 Intervertebral disc disorders with radiculopathy, lumbar region; M47.26 Other spondylosis with radiculopathy, lumbar region; M46.96 Unspecified inflammatory spondylopathy, lumbar region
CPT/HCPCS: 99211

== ENCOUNTER 2018-06-04 07:00 | Day surgery (SDC) | payer MEDICAID ==
[2018-06-04] MEDS ORDERED: SODIUM CHLORIDE 0.9% 500 ML 500 ML IV SCH (07:35)
[2018-06-04 07:49] VITALS: TEMP 97
[2018-06-04 07:51] LABS: Glucose,Whole Blood 116 mg/dL (75-99)
[2018-06-04] MEDS ORDERED: LACTATED RINGERS 1,000 ML IV ONE ×2 (07:51)
--- NOTE | 2018-06-04 08:35 | P.PCN ---
Date of Procedure: 06/04/18 Procedure(s) Performed: PREOPERATIVE DIAGNOSIS: 1-Lumbar Spondylosis with Facet Arthropathy without myelopathy. 2- Lumber degenerative disc disease. POSTOPERATIVE DIAGNOSIS: 1- Lumbar Spondylosis with Facet Arthropathy without myelopathy. 2- Lumber degenerative disc disease. PROCEDURES : Right Radiofrequency thermocoagulation, L3-L4, L4-L5, and L5-S1 medial branch, with fluoroscopic guidance ANESTHESIA: Moderate sedation with intravenous versed 2 mg and fentaneyl 100 mcg, and local infiltration with Ropivacaine 0.5 % . EBL: Minimal PROCEDURE INDICATION: The patient with low back pain secondary to lumbar facet arthropathy who had more than 50% relief of her pain with previous diagnostic lumbar medial branch block with bupivacaine. PROCEDURE DESCRIPTION / TECHNIQUE: The patient was seen and identified in the preoperative area. Risks, benefits, complications, including but not limited to risk of infection ,bleeding , allergic reactions to the medications and no complete pain releife , and alternatives were discussed with the patient, the patient agreed to proceed with the procedure and signed the consent. IV was started. Vital signs remained stable throughout the procedure. Patient was taken to the OR and time out was completed. The patient was placed in the prone position on the procedure table. The lumber area was prepped and draped in the usual sterile fashion. . Vital signs were closely monitored during the procedure .IV sedation was used during the procedure to decrease patients anxiety. Using AP and then oblique fluoroscopy, the ``eye of the Neal dog corresponding to the connection between the superior and transverse articular processes of right L3, L4, and L5 were identified, marked, and localized with 1% lidocaine. Subsequently, a 18 -bw radiofrequency cannula with a 10- mm active tip was advanced guided by fluoroscopy to each of the``eyes of the Neal dog at right L3, L4, and L5. Each site then underwent sensory testing at 50 Hz and 0 to 1 volt and motor testing at 2.5 Hz and 0 to 3 volt with local stimulation, but no radicular symptoms down the legs. Thereafter the right L3-4, L4-5, and L5-S1 sites underwent radiofrequency thermocoagulation at 80 degrees celsius for 90 seconds after injecting 0.5 ml of PF Ropivacaine 1ml, then after the thermocoagulation done , 1 ml of the block solution containing Depo-Medrol 40 mg and 3 ml of Ropivacaine 0.5% was injected at the right L3-4 , L4-5 , and L5-S1, levels after negative aspiration of CSF and blood and with no paresthesias. Cannulas were retracted while injecting lidocaine 1% until the needle is out. . At the end of the procedure, the skin was cleansed and bandages were applied. COMPLICATIONS: No acute complications. DISPOSITION / PLANS: The patient was placed in a supine position and transferred to the recovery area in a stable condition for observation and was discharged from the recovery room after meeting discharge criteria. Home discharge instructions given to the patient by the staff. The patient was reexamined prior to discharge. The patient will schedule a follow up in the clinic in 2-4 weeks.
[2018-06-04] MEDS ORDERED: IV FLUID CONTINUATION 1,000 ML IV ONE ×2 (08:40)
[2018-06-04 08:51] VITALS: PULSE 68
[2018-06-04 09:08] VITALS: BP 138/80; RESP 16
--- NOTE | 2018-06-04 10:00 | FL ---
EXAMINATION TYPE: FL guided pain mgmt statistic DATE OF EXAM: 06/04/2018 HISTORY: Pain RT SIDE RADIO FREQ WITH SEN WITH FARNAZ GENAO. 14 SECS FLUORO AND 4 PAPER IMAGES
== END 2018-06-04 09:12 | disposition home or self-care (01) ==
LOC: ORPAIN 07:00
PROVIDERS: ATTEND Specialist
DX: G89.29 Other chronic pain (principal); M47.26 Other spondylosis with radiculopathy, lumbar region; M51.16 Intervertebral disc disorders with radiculopathy, lumbar region
CPT/HCPCS: 64635; 64636 ×2; J2250; J1030; J3010; 99152

== ENCOUNTER 2018-06-09 09:21 | Day surgery (SDC) | payer MEDICAID ==
[2018-06-03 11:01] VITALS: BMI 34.2
[2018-06-09 10:36] VITALS: TEMP 97.6
[2018-06-09 10:39] LABS: Glucose,Whole Blood 107 mg/dL (75-99)
[2018-06-09] MEDS ORDERED: LACTATED RINGERS 1,000 ML IV ONE (10:42)
--- NOTE | 2018-06-09 12:16 | P.PCN ---
Date of Procedure: 06/09/18 Procedure(s) Performed: PREOPERATIVE DIAGNOSIS: 1-Lumbar Spondylosis with Facet Arthropathy without myelopathy. 2- Lumber degenerative disc disease. POSTOPERATIVE DIAGNOSIS: 1- Lumbar Spondylosis with Facet Arthropathy without myelopathy. 2- Lumber degenerative disc disease. PROCEDURES : Left Radiofrequency thermocoagulation, L3-L4, L4-L5, and L5-S1 medial branch, with fluoroscopic guidance. ANESTHESIA: Moderate sedation with intravenous versed 2 mg and fentaneyl 100 mcg, and local infiltration with Ropivacaine 0.5 % . EBL: Minimal PROCEDURE INDICATION: The patient with low back pain secondary to lumbar facet arthropathy who had more than 50% relief of her pain with previous diagnostic lumbar medial branch block with bupivacaine. PROCEDURE DESCRIPTION / TECHNIQUE: The patient was seen and identified in the preoperative area. Risks, benefits, complications, including but not limited to risk of infection ,bleeding , allergic reactions to the medications and no complete pain releife , and alternatives were discussed with the patient, the patient agreed to proceed with the procedure and signed the consent. IV was started. Vital signs remained stable throughout the procedure. Patient was taken to the OR and time out was completed. The patient was placed in the prone position on the procedure table. The lumber area was prepped and draped in the usual sterile fashion. . Vital signs were closely monitored during the procedure .IV sedation was used during the procedure to decrease patients anxiety. Using AP and then oblique fluoroscopy, the ``eye of the Neal dog corresponding to the connection between the superior and transverse articular processes of left L3, L4, and L5 were identified, marked, and localized with 1 % lidocaine. Subsequently, a [id number] radiofrequency cannula with a 10- mm active tip was advanced guided by fluoroscopy to each of the``eyes of the Neal dog at left L3, L4, and L5. Each site then underwent sensory testing at 50 Hz and 0 to 1 volt and motor testing at 2.5 Hz and 0 to 3 volt with local stimulation, but no radicular symptoms down the legs. Thereafter the left L3-4, L4-5, and L5-S1 sites underwent radiofrequency thermocoagulation at 80 degrees celsius for 90 seconds after injecting 0.5 ml of PF Ropivacaine 1ml, then after the thermocoagulation done , 1 ml of the block solution containing depo-medrol 40 mg and 3 ml of Ropivacaine 0.5% was injected at the left L3- 4 , L4-5 , and L5-S1, levels after negative aspiration of CSF and blood and with no paresthesias. Cannulas were retracted while injecting lidocaine 1% until the needle is out. At the end of the procedure, the skin was cleansed and bandages were applied. COMPLICATIONS: No acute complications. DISPOSITION / PLANS: The patient was placed in a supine position and transferred to the recovery area in a stable condition for observation and was discharged from the recovery room after meeting discharge criteria. Home discharge instructions given to the patient by the staff. The patient was reexamined prior to discharge. The patient will schedule a follow up in the clinic in 2-4 weeks.
[2018-06-09] MEDS ORDERED: IV FLUID CONTINUATION 1,000 ML IV ONE ×2 (12:23)
--- NOTE | 2018-06-09 12:28 | FL ---
EXAMINATION TYPE: FL guided pain mgmt statistic DATE OF EXAM: 06/09/2018 HISTORY: Pain Needle placement. Dr. Venu Dent. 16 sec fluoro time. 3 images scanned.
[2018-06-09 12:29] VITALS: RESP 20
[2018-06-09 12:42] VITALS: BP 135/85; PULSE 76
== END 2018-06-09 12:53 | disposition home or self-care (01) ==
LOC: ORPAIN 09:21
PROVIDERS: ATTEND Specialist
DX: M47.816 Spondylosis without myelopathy or radiculopathy, lumbar region (principal); M51.36 Other intervertebral disc degeneration, lumbar region; R73.03 Prediabetes
CPT/HCPCS: 64635; 64636; J2250; J1030; J3010; 99152

== ENCOUNTER → 2018-07-21 | Outpatient (CLI) | payer MEDICAID ==
--- NOTE | 2018-07-21 12:18 | P.PN ---
Subjective Progress Note Date: 07/21/18 This is a 67-year-old gentleman with history of chronic lower back pain due to lumbar spondylosis without myelopathy he is status post lumbar medial branch RFA with 100% of pain relief. As a matter of fact the patient was able to go to a telemetry for 1 month and he walked for many hours every day without any complaint of back pain. He still feels no pain in his lower back. Today, pt denies new-onset weakness, bowel/bladder incontinence, or any other signs or symptoms of cauda equina syndrome. There are no signs of acute intoxication, and no indications of medication diversion or overuse. In addition to above, 13-point review of systems is also negative for chest pain, shortness of breath, changes in vision, changes in hearing, new onset weakness, abdominal pain, diarrhea, extreme fatigue, malaise, fever, skin changes, homicidal or suicidal ideation, or bowel or bladder incontinence. Vital Signs: Reviewed in EMR Gen: AAOx3, NAD HEENT: PERRLA,hearing grossly normal Pulm: resp unlabored,CTA Heart:S1,S2, No Mur Neck: supple, trachea midline Neuro exam of the lower extremities: Within normal limits Neuro: CN II-XII grossly intact, Imaging: Reviewed in EMR/chart Assessment: Lumbar spondylosis without myelopathy Plan: 1. Explanation: Opioid and psychological risk scores were reviewed. Diagnoses, prognoses, and multiple treatment options including but not limited to physical therapy, interventional therapies, adjuvant medical therapies, narcotic medication therapies, and surgery were discussed with the patient and all questions were answered to the patient's satisfaction. 2. Opioid agreement: patient does not use opioids 3. Counseling: The patient was counseled extensively on SMOKING CESSATION, BODY MASS INDEX, EXERCISE. Specifically, the patient was instructed regarding the importance of smoking cessation, obesity, and exercise in the context of both chronic pain and overall health. 4. Procedures: None 5. Consultations: None 6. Investigations: None 7. Medications: None 8. Disposition: Return to clinic on an as-needed basis 9. Maps were reviewed and were appropriate.
[2018-07-21 12:22] VITALS: BP 156/86; PULSE 69; RESP 18
== END ==
LOC: PNWHC3 11:25
PROVIDERS: ATTEND Anesthesiology
DX: M47.816 Spondylosis without myelopathy or radiculopathy, lumbar region (principal)
CPT/HCPCS: 99211

== ENCOUNTER → 2018-08-13 | Outpatient (CLI) | payer MEDICAID | END | disposition home or self-care (01) | LOC: LABWHC1 08:36 | PROVIDERS: ATTEND Urology | DX: R97.20 Elevated prostate specific antigen [PSA] (principal) | CPT/HCPCS: 36415; 84153 ==

== ENCOUNTER → 2018-11-26 | Outpatient (CLI) | payer MEDICARE ==
--- NOTE | 2018-11-27 12:49 | ECHOF ---
Referral Reason:I35.0 Nonrheumatic aortic (valve) stenosis MEASUREMENTS -------- HEIGHT: 172.7 cm WEIGHT: 102.1 kg BP: RVIDd: 3.1 cm (< 3.3) IVSd: 1.6 cm (0.6 - 1.1) LVIDd: 4.2 cm (3.9 - 5.3) LVPWd: 1.6 cm (0.6 - 1.1) IVSs: 1.9 cm LVIDs: 2.5 cm LVPWs: 2.1 cm LAESV Index (A-L): 30.65 ml/m Ao Diam: 2.7 cm (2.0 - 3.7) AV Cusp: 1.8 cm (1.5 - 2.6) LA Diam: 3.4 cm (2.7 - 3.8) EPSS: 0.5 cm MV E Matt: 0.65 m/s MV DecT: 183 ms MV A Matt: 0.83 m/s MV E/A Ratio: 0.78 AV maxP.55 mmHg AV meanP.94 mmHg RAP: 5.00 mmHg RVSP: 20.22 mmHg MV EF SLOPE: 68.87 mm/s (70 - 150) MV EXCURSION: 1.34 cm (> 18.000) FINDINGS -------- Sinus rhythm. This was a technically difficult study with suboptimal views. The left ventricular size is normal. There is moderate concentric left ventricular hypertrophy. O verall left ventricular systolic function is normal with, an EF between 55 - 60 %. The diastolic fi lling pattern indicates impaired relaxation. The right ventricle is normal in size. Left atrium is mildly dilated by volume. The right atrial size is normal. Lumason used Interatrial and interventricular septum intact. There is no evidence of aortic regurgitation. There is mild aortic stenosis present. Peak/mean gr adient across the valve is 22.55mmHg / 12.94mmHg. Mild mitral regurgitation is present. Mild tricuspid regurgitation present. There is no evidence of pulmonary hypertension. The right v entricular systolic pressure, as measured by Doppler, is 20.22mmHg. The pulmonic valve is normal. The aortic root size is normal. The inferior vena cava is mildly dilated. There is no pericardial effusion. CONCLUSIONS -------- 1. Sinus rhythm. 2. This was a technically difficult study with suboptimal views. 3. The left ventricular size is normal. 4. There is moderate concentric left ventricular hypertrophy. 5. Overall left ventricular systolic function is normal with, an EF between 55 - 60 %. 6. The diastolic filling pattern indicates impaired relaxation. 7. The right ventricle is normal in size. 8. Left atrium is mildly dilated by volume. 9. The right atrial size is normal. 10. Lumason used 11. Interatrial and interventricular septum intact. 12. There is no evidence of aortic regurgitation. 13. There is mild aortic stenosis present. 14. Peak/mean gradient across the valve is 22.55mmHg / 12.94mmHg. 15. Mild mitral regurgitation is present. 16. Mild tricuspid regurgitation present. 17. There is no evidence of pulmonary hypertension. 18. The right ventricular systolic pressure, as measured by Doppler, is 20.22mmHg. 19. The pulmonic valve is normal. 20. The aortic root size is normal. 21. The inferior vena cava is mildly dilated. 22. There is no pericardial effusion. MUD ANALYSIS SUPERVISOR: Christy Toney [facility]
== END | disposition home or self-care (01) ==
LOC: RADECHMAIN 12:24
PROVIDERS: ATTEND Internal Medicine Geriatric Medicine
DX: I08.1 Rheumatic disorders of both mitral and tricuspid valves (principal)
CPT/HCPCS: C8929; Q9950; 93306

== ENCOUNTER → 2018-11-27 | Outpatient (CLI) | payer MEDICARE ==
[2018-11-27 07:25] LABS: Basophils % (A) 1 %; Eosinophils # (A) 0.2 k/uL (0-0.7); Eosinophils % (A) 4 %; HCT 44.8 % (39.0-53.0); HGB 15.2 gm/dL (13.0-17.5); Lymphocytes # (A) 1.8 k/uL (1.0-4.8); Lymphocytes % (A) 31 %; MCH 30.5 pg (25.0-35.0); MCHC 33.9 g/dL (31.0-37.0); Mean Platelet Volume 6.8; Monocytes # (A) 0.3 k/uL (0-1.0); Monocytes % (A) 6 %; Neutrophils # (A) 3.3 k/uL (1.3-7.7); Neutrophils % (A) 57 %; Platelet Count 273 k/uL (150-450); RBC 4.98 m/uL (4.30-5.90); RDW 14.5 % (11.5-15.5); WBC 5.7 k/uL (3.8-10.6)
[2018-11-27 11:23] LABS: African American GFR (CKD) 106.4 (60.0-200.0); Albumin 4.5 g/dL (3.80-4.90); Albumin/Globulin Ratio 2.37 (1.60-3.17); Anion Gap 7.4 mmol/L (4.00-12.00); BUN/Creat Ratio 31.25 Ratio (12.00-20.00); Calcium 9.5 mg/dL (8.7-10.3); Carbon Dioxide 25.6 mmol/L (21.6-31.8); Globulin 1.9 g/dL (1.6-3.3); Potassium 4.4 mmol/L (3.5-5.5); Total Bilirubin 0.7 mg/dL (0.2-1.2); Total Protein 6.4 g/dL (6.2-8.2)
[2018-11-27 11:31] LABS: T4, Free (Free Thyroxine) 1.1 ng/dL (0.80-1.80)
[2018-11-27 14:32] LABS: Hemoglobin A1C 5.9 % (4.0-6.0)
== END | disposition home or self-care (01) ==
LOC: LABWHC1 07:06
PROVIDERS: ATTEND Internal Medicine Geriatric Medicine
DX: Z00.00 Encounter for general adult medical examination without abnormal findings (principal); R00.1 Bradycardia, unspecified; R73.9 Hyperglycemia, unspecified; K75.81 Nonalcoholic steatohepatitis (NASH)
CPT/HCPCS: 36415; 80053; 80061; 83036; 84439; 84443; 85025

== ENCOUNTER → 2019-02-10 | Outpatient (CLI) | payer MEDICARE | END | disposition home or self-care (01) | LOC: LABWHC1 07:37 | PROVIDERS: ATTEND Urology | DX: R97.20 Elevated prostate specific antigen [PSA] (principal) | CPT/HCPCS: 36415; 84153 ==

== ENCOUNTER → 2019-03-23 | Outpatient (CLI) | payer MEDICARE ==
--- NOTE | 2019-03-23 13:35 | US ---
EXAMINATION TYPE: US venous doppler duplex LE LT DATE OF EXAM: 03/23/2019 1:20 PM COMPARISON: NONE CLINICAL HISTORY: R22.42 Localized swelling of left leg with lump. SIDE PERFORMED: Left TECHNIQUE: The lower extremity deep venous system is examined utilizing real time linear array sonog evie with graded compression, doppler sonography and color-flow sonography. VESSELS IMAGED: External Iliac Vein (EIV) Common Femoral Vein Deep Femoral Vein Greater Saphenous Vein * Femoral Vein Popliteal Vein Small Saphenous Vein * Proximal Calf Veins (* superficial vessels) Left Leg: Negative for DVT Probable Ba's cyst measuring 4.0 x 1.3 x 2.8cm Area of pain scanned left calf lump scanned, small patient varicose veins seen here. There is normal flow, compressibility, vascular waveforms. IMPRESSION: No evident of deep venous thrombosis at or above the left knee. Palpable lump corresponds to varicosity. Ba cyst is likely present.
== END ==
LOC: RADUSWWP 12:46
PROVIDERS: ATTEND Internal Medicine
DX: R22.42 Localized swelling, mass and lump, left lower limb (principal)

== ENCOUNTER → 2019-11-04 | Outpatient (CLI) | payer MEDICARE ==
[2019-11-04 08:57] LABS: Basophils % (A) 1 %; Eosinophils # (A) 0.2 k/uL (0-0.7); Eosinophils % (A) 3 %; HCT 45.8 % (39.0-53.0); HGB 14.8 gm/dL (13.0-17.5); Lymphocytes # (A) 1.8 k/uL (1.0-4.8); Lymphocytes % (A) 30 %; MCH 30.4 pg (25.0-35.0); MCHC 32.4 g/dL (31.0-37.0); MCV 93.9 fL (80.0-100.0); Mean Platelet Volume 6.8; Monocytes # (A) 0.2 k/uL (0-1.0); Monocytes % (A) 4 %; Neutrophils # (A) 3.6 k/uL (1.3-7.7); Neutrophils % (A) 61 %; Platelet Count 275 k/uL (150-450); RBC 4.88 m/uL (4.30-5.90); RDW 13.1 % (11.5-15.5); WBC 5.9 k/uL (3.8-10.6)
[2019-11-04 16:23] LABS: African American GFR (CKD) 105.6 (60.0-200.0); Albumin 4.6 g/dL (3.80-4.90); Albumin/Globulin Ratio 2.09 (1.60-3.17); Anion Gap 9.6 mmol/L (4.00-12.00); BUN/Creat Ratio 26.25 Ratio (12.00-20.00); Calcium 9.2 mg/dL (8.7-10.3); Carbon Dioxide 26.4 mmol/L (21.6-31.8); Chol/HDL Ratio 2.64; Globulin 2.2 g/dL (1.6-3.3); Non-African American GFR(CKD) 91.1 (60.0-200.0); Potassium 4.4 mmol/L (3.5-5.5); Total Bilirubin 0.8 mg/dL (0.2-1.2); Total Protein 6.8 g/dL (6.2-8.2)
[2019-11-04 16:31] LABS: T4, Free (Free Thyroxine) 1.2 ng/dL (0.80-1.80)
[2019-11-04 20:07] LABS: Hemoglobin A1C 5.7 % (4.0-6.0)
== END | disposition home or self-care (01) ==
LOC: LABWHC1 08:18
PROVIDERS: ATTEND Internal Medicine Geriatric Medicine
DX: E78.00 Pure hypercholesterolemia, unspecified (principal); E11.65 Type 2 diabetes mellitus with hyperglycemia; I10 Essential (primary) hypertension; R97.20 Elevated prostate specific antigen [PSA]
CPT/HCPCS: 36415; 80053; 80061; 83036; 84153; 84439; 84443; 85025

== ENCOUNTER → 2020-03-11 | Outpatient (CLI) | payer MEDICARE ==
--- NOTE | 2020-03-11 09:07 | MR ---
EXAMINATION TYPE: MR Prostate wo/w con DATE OF EXAM: 03/11/2020 COMPARISON: Prior MRI Prostate May 16, 2018 IMAGE QUALITY: . 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 Left mid core biopsy adenocarcinoma 3+4 = 7 10% of tissue 2 mm in length. TECHNIQUE: Examination was performed using a 3T MRI without an endorectal coil. Multiparametric imaging was perf ormed with T2 mutliplanar sequences, axial diffusion weighted imaging and dynamic contrast enhanced i maging, utilizing 10.5 mL intravenous Gadavist gadolinium contrast. FINDINGS: There is no clinically significant cancer identified. PROSTATE VOLUME: 4.6 cm SI x 4.5 cm AP x 5.4 cm LR Vol= 58.5 cc PSA DENSITY: 7.02 ng/ml/cc Note is made of some areas of T1 hyperintensity or blood product particularly left prosthetic lobe ap ical to mid zones laterally. Peripheral zone shows some some areas of indistinct hypointensity particularly right mid to basilar level. No areas of more moderate hypointensity with increased signal on diffusion-weighted images cory ntified. T2-weighted images show heterogeneity without worrisome indistinct or heterogeneous areas of low sign al in the transitional zone. Prostatic capsule is maintained. Seminal vesicles symmetric and slightly bulky. Visualized osseous structures are intact. No suspicious adjacent adenopathy. Bladder shows poor diste ntion with mild to moderate wall thickening. No suspicious bowel dilatation. No pelvic ascites. IMPRESSION: A focus of clinically significant cancer is not identified. No significant change from prior. Highest Assessment Category: 2 MRI Stage: T1c N0 M0 based on review of pelvic images. False negative rates for MRI range from 5-20% depending on risk profile. Assessment Categories: 1 ? Very low (clinically significant cancer is highly unlikely to be present) 2 ? Low (clinically significant cancer is unlikely to be present) 3 ? Intermediate (the presence of clinically significant cancer is equivocal) 4 ? High (clinically significant cancer is likely to be present) 5 ? Very high (clinically significant cancer is highly likely to be present)
== END | disposition home or self-care (01) ==
LOC: RADMRIMAIN 06:38
PROVIDERS: ATTEND Urology
DX: C61 Malignant neoplasm of prostate (principal)
CPT/HCPCS: 72197; A9585

== ENCOUNTER → 2020-04-02 | Outpatient (CLI) | payer MEDICARE ==
--- NOTE | 2020-04-03 00:14 | MR ---
Result: History: M25.522. Left elbow pain. Comparison: Radiographs 12/30/2019. Technique: Routine multisequence magnetic resonance imaging examination of the left elbow was perform ed without the administration of gadolinium based intravenous contrast. Findings: The bone marrow signal is grossly unremarkable without acute fracture or dislocation. There is small elbow joint effusion. There is moderate grade partial thickness tear and tendinosis of the distal biceps tendon at the grea ter tuberosity. There is mild to moderate surrounding soft tissue edema. The distal brachialis, common flexor, common extensor and triceps tendons are grossly unremarkable. The radial collateral, medial and lateral ulnar collateral ligaments are grossly intact. No significa nt muscle atrophy. The visualized neurovascular bundles are grossly intact. Impression: Moderate grade partial-thickness, insertional tear of the distal biceps tendon on the background of m oderate tendinosis. Associated soft tissue edema and small joint effusion.
== END | disposition home or self-care (01) ==
LOC: RADMRIMAIN 09:35
PROVIDERS: ATTEND Orthopaedic Surgery
DX: M25.422 Effusion, left elbow (principal); M79.89 Other specified soft tissue disorders

== ENCOUNTER → 2020-05-02 | Outpatient (CLI) | payer MEDICARE ==
[2020-04-28 13:55] VITALS: BMI 34.9
[2020-05-02 08:44] VITALS: BP 137/89; PULSE 71; RESP 18
--- NOTE | 2020-05-02 18:54 | P.PN ---
Subjective Progress Note Date: 05/02/20 This is Follow up visit for this 69 years old male with a chronic history of severe low back pain, he is diagnosed with lumbar spondylosis with lumbar facet arthropathy, May 2018 and we have done radiofrequency thermocoagulation of the medial branch lumbar area and he gets excellent pain relief after the procedure, he was pain free for more than a 1-1/2 years, currently is complaining of severe low back pain the pain is constant and increases with any activity, he denies any motor or sensory deficit he denies any fever or night sweats he denies any change in the bowel movement or urination. Objective - Vital Signs Vital signs: Vital Signs Temp Pulse 71 05/02/20 08:37 Resp 18 05/02/20 08:37 BP 137/89 05/02/20 08:37 Pulse Ox 96 05/02/20 08:37 - Exam Physical Examinations : -Constitutiona : Cooperative , not in acute distress . -HEENT : nech : supple , no Lymphadenopathy , normal thyroid size . : eyes : no ptosis , no icterus, no photophobia . - neurologic : Cranial nerve II to XII intact , no focal neurological deffecit . -psychatric : alert , oriented X 3 , appropriate affect , intact judgment and insight . -Lymphatic : no Lymphadenopathy . - musculoskeltal : Lumber spine moter stegnth lower extremities ,thigh and legs 5/5 Right side , 5/5 Left side deep tendon reflexes : normal Knee Jerk , normal ankle Jerk lumber facet Loading Test =positive Right , positive Left Range of motion of the lumbar spine Flexion 30 degrees, extension 10 degrees strait leg raising test = positive at 60 degree Fabere test= positive Right , and positive LT . tenderness over the Sacroiliac joint on the Right , and Left sides Assessment and Plan Plan: Assessment and plan=1-lumbar degenerative disc disease. 2-lumbar spondylosis with lumbar facet arthropathy without myelopathy. Patient had excellent pain relief after the radiofrequency thermocoagulation of the medial branch lumbar area, he could benefit from repeat RFA medial branch lumbar area at L3, L4, L5 bilaterally ( to target the facet joints at L4-5 , and L5-S1 ) - PQRS measures = - Patient's medications are documented in the chart. -Tobacco use is negative and counseling.Given. -Patient's has not received pneumococcal vaccine. -Advanced care planning discussed, patient not eligible. -Opiate contract signed. -Pain positive and follow-up visit/procedure is scheduled. -Patient's blood pressure measured [ 137/89 ] , and documented in the record ,and patient will follow up with the primary care. -Patient's weight was measured and body mass index [ 35 ] above the normal limits and counseling was done. and patient instructed to follow-up with the primary care physician. -Patient was not identified as an unhealthy alcohol user Time with Patient: Less than 30
== END | disposition home or self-care (01) ==
LOC: PNWHC3 08:18
PROVIDERS: ATTEND Specialist
DX: M51.36 Other intervertebral disc degeneration, lumbar region (principal); M47.816 Spondylosis without myelopathy or radiculopathy, lumbar region
CPT/HCPCS: 99211

== ENCOUNTER 2020-05-26 09:46 | Day surgery (SDC) | payer MEDICARE ==
[2020-05-23 08:49] VITALS: BMI 34.2
[~2020-05-26 09:46] MED LIST changes: +LACTATED RINGERS 1,000 ML IV SCH; -SODIUM CHLORIDE 0.9% 500 ML 500 ML IV SCH
[2020-05-26] MEDS ORDERED: LIDOCAINE 1% (10MG/ML) FOR IV START INTRADERMA ONE (10:10)
[2020-05-26 10:18] LABS: Glucose,Whole Blood 111 mg/dL (75-99)
[2020-05-26 10:19] VITALS: TEMP 98.1
[2020-05-26] MEDS ORDERED: MIDAZOLAM 2 MG/2 ML VIAL ONE (10:29)
[2020-05-26] MEDS ORDERED: fentaNYL (PF) 50 MCG/ML 2 ML AMP ONE (10:29)
[2020-05-26] MEDS ORDERED: ROPIVACAINE 5MG/ML 20ML VIAL ONE (10:29)
[2020-05-26] MEDS ORDERED: methylPREDNISolone ACETATE 40 MG/ML 1 ML VIAL ONE (10:29)
--- NOTE | 2020-05-26 11:00 | P.PCN ---
Date of Procedure: 05/26/20 Procedure(s) Performed: PREOPERATIVE DIAGNOSIS: 1-Lumbar Spondylosis with Facet Arthropathy without myelopathy. 2- Lumber degenerative disc disease. POSTOPERATIVE DIAGNOSIS: 1- Lumbar Spondylosis with Facet Arthropathy without myelopathy. 2- Lumber degenerative disc disease. PROCEDURES : Bilateral Radiofrequency thermocoagulation, L3 , L4 , and L5 medial branch, with fluoroscopic guidance (fluoroscopy images available in the radiology department) ( to denervate the facet joint at L4-5 ,and L5-S1 levels ) ANESTHESIA: Moderate sedation with intravenous versed 2 mg and fentaneyl 100 mcg, and local infiltration with Ropivacaine 0.5 % . EBL: Minimal PROCEDURE INDICATION: The patient with low back pain secondary to lumbar facet arthropathy who had more than 50% relief of her pain with previous diagnostic lumbar medial branch block with bupivacaine. PROCEDURE DESCRIPTION / TECHNIQUE: The patient was seen and identified in the preoperative area. Risks, benefits, complications, including but not limited to risk of infection ,bleeding , allergic reactions to the medications and no complete pain releife , and alternatives were discussed with the patient, the patient agreed to proceed with the procedure and signed the consent. IV was started. Vital signs remained stable throughout the procedure. Patient was taken to the OR and time out was completed. The patient was placed in the prone position on the procedure table. The lumber area was prepped and draped in the usual sterile fashion. . Vital signs were closely monitored during the procedure .IV sedation was used during the procedure to decrease patients anxiety. Using AP and then oblique fluoroscopy, the ``eye of the Neal dog corresponding to the connection between the superior and transverse articular processes of right L3, L4, and L5 were identified, marked, and localized with 1% lidocaine. Subsequently, a 18 [id number] radiofrequency cannula with a 10-mm active tip was advanced guided by fluoroscopy to each of the``eyes of the Neal dog at right L3, L4, and L5. Each site then underwent sensory testing at 50 Hz and 0 to 1 volt and motor testing at 2.5 Hz and 0 to 3 volt with local stimulation, but no radicular symptoms down the legs. Thereafter each sites underwent radiofrequency thermocoagulation at 80 degrees celsius for 90 seconds after injecting 0.5 ml of PF Ropivacaine 1ml, then after the thermocoagulation done , 1 ml of the block solution containing Depo-Medrol 20 mg and 3 ml of Ropivacaine 0.5% was injected at the right L3 , L4 , and L5 , levels after negative aspiration of CSF and blood and with no paresthesias. Cannulas were retracted while injecting lidocaine 1% until the needle is out. The same procedure was repeated at the level of Left L3, L4, and L5 levels. At the end of the procedure, the skin was cleansed and bandages were applied. COMPLICATIONS: No acute complications. DISPOSITION / PLANS: The patient was placed in a supine position and transferred to the recovery area in a stable condition for observation and was discharged from the recovery room after meeting discharge criteria. Home discharge instructions given to the patient by the staff. The patient was reexamined prior to discharge. The patient will schedule a follow up in the clinic in 2-4 weeks.
[2020-05-26] MEDS ORDERED: FLUID CONTINUATION IV ONE (11:07)
--- NOTE | 2020-05-26 11:10 | FL ---
EXAMINATION TYPE: FL guided pain mgmt statistic DATE OF EXAM: 05/26/2020 CLINICAL HISTORY: Low back pain. TECHNIQUE: Fluoroscopy. COMPARISON: None. FINDINGS: Fluoroscopic guidance was provided during pain relief procedure performed by Dr. Clarke . A total of 23 seconds of fluoroscopic time was utilized during the procedure and 6 spot images are acquired. Images acquired shows needle localization at several levels in the lower lumbar spine off the midline. IMPRESSION: As Above.
[2020-05-26 11:13] VITALS: RESP 16
[2020-05-26 11:28] VITALS: BP 136/74; PULSE 70
== END 2020-05-26 11:42 | disposition home or self-care (01) ==
LOC: ORPAIN 09:46
PROVIDERS: ATTEND Specialist
DX: M47.816 Spondylosis without myelopathy or radiculopathy, lumbar region (principal); M51.36 Other intervertebral disc degeneration, lumbar region; Z98.890 Other specified postprocedural states
CPT/HCPCS: 64635; 64636; J2250; J1030; J3010; J2795; 99152; 99153

== ENCOUNTER → 2020-06-30 | Outpatient (CLI) | payer MEDICARE ==
[2020-06-30 17:04] LABS: African American GFR (CKD) 99.9 (60.0-200.0); Albumin/Globulin Ratio 2.63 (1.60-3.17); Anion Gap 10.8 mmol/L (4.00-12.00); BUN/Creat Ratio 22.22 Ratio (12.00-20.00); Calcium 9.9 mg/dL (8.7-10.3); Carbon Dioxide 26.2 mmol/L (21.6-31.8); Chol/HDL Ratio 3.15; Globulin 1.9 g/dL (1.6-3.3); LDL Cholesterol,Calculated 93.2 mg/dL (0.0-131.0); Non-African American GFR(CKD) 86.2 (60.0-200.0); Potassium 4.4 mmol/L (3.5-5.5); Prostate Specific Antigen 2.3 ng/mL (0.0-6.5); Total Bilirubin 0.9 mg/dL (0.2-1.2); Total Protein 6.9 g/dL (6.2-8.2); VLDL Calculation 24.8 mg/dL (5.00-40.00)
[2020-06-30 17:14] LABS: Basophils # (A) 0.04 X 10*3/uL (0.00-0.10); Basophils % (A) 0.8 %; Eosinophils # (A) 0.21 X 10*3/uL (0.04-0.35); Eosinophils % (A) 4.3 %; HCT 46.2 % (39.6-50.0); HGB 15.7 g/dL (13.0-17.0); Lymphocytes # (A) 1.76 X 10*3/uL (0.90-5.00); Lymphocytes % (A) 35.6 %; MCH 30.8 pg (27.0-32.0); MCV 90.6 fL (80.0-97.0); Mean Platelet Volume 9.8 fL (9.5-12.2); Monocytes # (A) 0.51 X 10*3/uL (0.20-1.00); Monocytes % (A) 10.3 %; Neutrophils # (A) 2.41 X 10*3/uL (1.80-7.70); Neutrophils % (A) 48.8 %; Platelet Count 268 X 10*3/uL (140-440); RDW 12.4 % (11.5-14.5); WBC 4.94 X 10*3/uL (4.50-10.00)
[2020-06-30 17:15] LABS: Hemoglobin A1C 5.7 % (4.0-6.0)
[2020-06-30 22:08] LABS: Urine Creatinine 291.9 mg/dL
== END | disposition home or self-care (01) ==
LOC: LABWHC1 10:11
PROVIDERS: ATTEND Urology
DX: E78.2 Mixed hyperlipidemia (principal); E11.65 Type 2 diabetes mellitus with hyperglycemia; C61 Malignant neoplasm of prostate
CPT/HCPCS: 36415; 80053; 80061; 82043; 82570; 83036; 84153; 85025

== ENCOUNTER → 2020-08-26 | Outpatient (CLI) | payer MEDICARE ==
--- NOTE | 2020-08-26 08:38 | MR ---
EXAMINATION TYPE: MR shoulder RT wo con DATE OF EXAM: 08/26/2020 COMPARISON: Plain film 08/25/[address] 04/23/2013 HISTORY: R shoulder pain TECHNIQUE: Multiplanar, multisequence imaging of the right shoulder is performed without contrast. FINDINGS: Abnormal density in the right mid lung likely correlates to calcified pleural plaque noted on correlation x-ray Rotator Cuff: Partial complete tear of the rotator cuff is noted, supraspinatus tendon shows some ret raction to the level of the acromion, the rotator cuff is attenuated and shows abnormal increased sig nal. Acromioclavicular Joint: There is arthropathy change present causing mass effect on the musculotendin ous junction of supraspinatus. There is a distal acromial spur. Glenohumeral Joint: Shoulders somewhat high riding, some mild arthropathy changes present, spurring t he humeral head Labrum: The labrum appears grossly intact given limitation of non-arthrogram study. Biceps Tendon: The long head of biceps is in normal location within bicipital groove, there is fluid signal along the long head of biceps tendon. Bone marrow signal: Pseudocysts are present within the humeral head Other: There is fluid in the subacromial subdeltoid bursa, joint effusion IMPRESSION: Rotator cuff tear as described, correlate for impingement. Osteoarthritis. Indeterminate abnormality on right shoulder x-ray.
== END | disposition home or self-care (01) ==
LOC: RADMRIMAIN 07:12
PROVIDERS: ATTEND Orthopaedic Surgery
DX: M75.101 Unspecified rotator cuff tear or rupture of right shoulder, not specified as traumatic (principal); M19.011 Primary osteoarthritis, right shoulder

== ENCOUNTER 2020-12-12 07:06 | Emergency (ER) | payer MEDICARE ==
[2020-12-12 07:12] VITALS: BP 153/88; PULSE 66; RESP 18; TEMP 97.9
[2020-12-12] MEDS ORDERED: FLUORESCEIN STRIPS 1 MG STRIP RIGHT EYE ONE (07:21)
--- NOTE | 2020-12-12 07:27 | ED ---
Eye Problem HPI - General Chief complaint: Eye Problems Stated complaint: eye problem Time Seen by Provider: 12/12/20 07:13 Source: patient, RN notes reviewed Mode of arrival: ambulatory Limitations: no limitations - History of Present Illness Initial comments: 69-year-old male presents emergency Department chief complaint of right eye redness. Patient states started last day or so states that he's been drywalling and was concern for possible foreign body in his eye. Patient denies any pain no foreign body sensation no blurred vision or double vision. Patient states she's had no drainage, crusting or any discomfort. He states he just noticed the redness. - Related Data Home Medications Medication Instructions Recorded Confirmed Irbesartan/Hydrochlorothiazide 1 each PO DAILY 06/21/14 06/10/20 [Avalide 300-12.5 mg Tablet] Rosuvastatin Calcium [Crestor] 20 mg PO DAILY 06/21/14 06/10/20 Aspirin [Adult Low Dose Aspirin EC] 81 mg PO DAILY 03/31/15 06/10/20 metFORMIN HCL [Glucophage] 500 mg PO QAM 03/29/17 06/10/20 Tamsulosin HCl [Flomax] 0.4 mg PO W/SUPPER 04/28/20 06/10/20 Allergies Allergy/AdvReac Type Severity Reaction Status Date / Time No Known Allergies Allergy Verified 12/12/20 07:12 Review of Systems ROS Statement: Those systems with pertinent positive or pertinent negative responses have been documented in the HPI. ROS Other: All systems not noted in ROS Statement are negative. 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, "PROSTATE - "PRE CANCER" , "borderline diabetic", "Borderline cholesterol", History of Any Multi-Drug Resistant Organisms: None Reported Past Surgical History: Back Surgery, Cholecystectomy, Orthopedic Surgery, Prostate Surgery Additional Past Surgical History / Comment(s): Spinal fusion, Colonoscopy, L Rotator cuff surgery.Pain procedures, surgery on left thumb Past Anesthesia/Blood Transfusion Reactions: No Reported Reaction Past Psychological History: No Psychological Hx Reported Smoking Status: Former smoker Past Alcohol Use History: Daily Past Drug Use History: None Reported - Past Family History Mother Family Medical History: No Reported History General Exam Limitations: no limitations General appearance: alert, in no apparent distress Head exam: Present: atraumatic, normocephalic, normal inspection Eye exam: Present: PERRL, EOMI, conjunctival injection (Mild right arm medial aspect with some blood noted). Absent: normal appearance, scleral icterus, periorbital swelling Pupils: Present: other (Fluorescein dye and Wood's lamp were used no from for any uptake) ENT exam: Present: normal exam, normal oropharynx, mucous membranes moist Neck exam: Present: normal inspection, full ROM. Absent: tenderness, meningismus, lymphadenopathy Respiratory exam: Present: normal lung sounds bilaterally. Absent: respiratory distress, wheezes, rales, rhonchi, stridor Cardiovascular Exam: Present: regular rate, normal rhythm, normal heart sounds. Absent: systolic murmur, diastolic murmur, rubs, gallop, clicks Course Vital Signs 12/12/20 07:07 Temperature 97.9 F Pulse Rate 66 Respiratory 18 Rate Blood Pressure 153/88 O2 Sat by Pulse 96 Oximetry Medical Decision Making - Medical Decision Making 69-year-old male presented for right eye redness. Patient has subconjunctival hemorrhage no foreign body noted no visual changes no purulent drainage. Patient discharged in stable condition. Disposition Clinical Impression: Subconjunctival hemorrhage of right eye Disposition: HOME SELF-CARE Condition: Stable Instructions (If sedation given, give patient instructions): Subconjunctival Hemorrhage (ED) Additional Instructions: Please return to the Emergency Department if symptoms worsen or any other concerns. Is patient prescribed a controlled substance at d/c from ED?: No Referrals: Boaz Meek MD [Primary Care Provider] - 1-2 days Time of Disposition: 07:27
== END 2020-12-12 07:30 | disposition home or self-care (01) ==
LOC: EC 07:06
DX: H11.31 Conjunctival hemorrhage, right eye (principal); E11.9 Type 2 diabetes mellitus without complications; I10 Essential (primary) hypertension; E78.5 Hyperlipidemia, unspecified; Z79.899 Other long term (current) drug therapy; Z79.84 Long term (current) use of oral hypoglycemic drugs; Z79.82 Long term (current) use of aspirin; Z87.891 Personal history of nicotine dependence
CPT/HCPCS: 99282

== ENCOUNTER → 2021-01-09 | Outpatient (CLI) | payer MEDICARE | END | disposition home or self-care (01) | LOC: LABWHC1 08:56 | PROVIDERS: ATTEND Urology | DX: R97.20 Elevated prostate specific antigen [PSA] (principal) | CPT/HCPCS: 36415; 84153 ==

== ENCOUNTER → 2021-01-12 | Outpatient (CLI) | payer MEDICARE ==
--- NOTE | 2021-01-12 17:56 | ECHOF ---
Referral Reason:r01.1 heart murmur MEASUREMENTS -------- HEIGHT: 172.7 cm WEIGHT: 104.3 kg BP: IVSd: 1.2 cm (0.6 - 1.1) LVIDd: 5.2 cm (3.9 - 5.3) LVPWd: 1.2 cm (0.6 - 1.1) EDV(Teich): 128 ml IVSs: 1.6 cm LVIDs: 4.2 cm LVPWs: 1.8 cm %IVS Thck: 34 % ESV(Teich): 79 ml EF(Teich): 38 % %FS: 18 % SV(Teich): 49 ml LA Diam: 4.2 cm (2.7 - 3.8) RVIDd: 3.8 cm (< 3.3) Ao Diam: 3.5 cm (2.0 - 3.7) AV Cusp: 1.1 cm (1.5 - 2.6) EPSS: 0.4 cm MV E Matt: 0.34 m/s MV DecT: 261 ms MV Dec Canadian: 1.3 m/s MV A Matt: 0.62 m/s MV E/A Ratio: 0.55 MV PHT: 76 ms LVOT Vmax: 1.32 m/s LVOT maxP.99 mmHg LVOT Vmax: 1.35 m/s LVOT Vmean: 0.86 m/s LVOT maxP.28 mmHg LVOT meanP.54 mmHg LVOT Env.Ti: 254 ms LVOT VTI: 21.8 cm AV Vmax: 2.63 m/s AV maxP.44 mmHg AV Vmax: 2.72 m/s AV Vmean: 2.10 m/s AV maxP.63 mmHg AV meanP.73 mmHg AV Env.Ti: 231 ms AV VTI: 48.0 cm MV EF SLOPE: 72.09 mm/s (70 - 150) MV EXCURSION: 17.96 mm (> 18.000) FINDINGS -------- Sinus rhythm. This was a techncally difficult study with suboptimal views, , Lumason utilized for enhancement of im ages. The left ventricular size is normal. There is mild concentric left ventricular hypertrophy. Overa ll left ventricular systolic function is low-normal with, an EF between 50 - 55 %. The right ventricle is normal in size. The left atrial size is normal. The right atrial size is normal. There is moderate aortic stenosis present. Peak/mean gradient across the Aortic Valve is 31.63mmHg / 19.73mmHg. Mild mitral regurgitation is present. Mild tricuspid regurgitation present. Right ventricular systolic pressure is normal at < 35 mmHg. The pulmonic valve was not well visualized. Echo free space represents a pericardial fat pad. CONCLUSIONS -------- 1. The left ventricular size is normal. 2. There is mild concentric left ventricular hypertrophy. 3. Overall left ventricular systolic function is low-normal with, an EF between 50 - 55 %. 4. The right ventricle is normal in size. 5. The left atrial size is normal. 6. The right atrial size is normal. 7. There is moderate aortic stenosis present. 8. Peak/mean gradient across the Aortic Valve is 31.63mmHg / 19.73mmHg. 9. Mild mitral regurgitation is present. 10. Mild tricuspid regurgitation present. 11. The pulmonic valve was not well visualized. 12. Echo free space represents a pericardial fat pad. LOZENGE MAKER: Lianet Sargent RDCS
== END | disposition home or self-care (01) ==
LOC: RADECHMAIN 14:40
PROVIDERS: ATTEND Internal Medicine Geriatric Medicine
DX: I51.7 Cardiomegaly (principal); I35.0 Nonrheumatic aortic (valve) stenosis; I34.0 Nonrheumatic mitral (valve) insufficiency; R01.1 Cardiac murmur, unspecified
CPT/HCPCS: C8929; Q9950; 93306

== ENCOUNTER → 2021-03-09 | Outpatient (CLI) | payer MEDICARE ==
[2021-03-09 10:35] LABS: Potassium 4.1 mmol/L (3.5-5.1)
[2021-03-09 11:01] LABS: Basophils # (A) 0.1 k/uL (0-0.2); Basophils % (A) 1 %; Eosinophils # (A) 0.2 k/uL (0-0.7); Eosinophils % (A) 3 %; HCT 45.5 % (39.0-53.0); HGB 15.9 gm/dL (13.0-17.5); Lymphocytes % (A) 31 %; MCH 32.1 pg (25.0-35.0); MCV 91.8 fL (80.0-100.0); Monocytes # (A) 0.3 k/uL (0-1.0); Monocytes % (A) 5 %; Neutrophils # (A) 3.9 k/uL (1.3-7.7); Neutrophils % (A) 59 %; Platelet Count 282 k/uL (150-450); RBC 4.95 m/uL (4.30-5.90); RDW 13.4 % (11.5-15.5); WBC 6.5 k/uL (3.8-10.6)
== END | disposition home or self-care (01) ==
LOC: LABPAT 09:42
PROVIDERS: ATTEND Orthopaedic Surgery
DX: Z01.812 Encounter for preprocedural laboratory examination (principal); Z01.810 Encounter for preprocedural cardiovascular examination; M75.41 Impingement syndrome of right shoulder
CPT/HCPCS: 36415; 80051; 85025; 93005

== ENCOUNTER 2021-03-31 06:06 | Day surgery (SDC) | payer MEDICARE ==
[2021-03-29 08:42] VITALS: BMI 34.9
--- NOTE | 2021-03-30 10:45 | HP ---
HISTORY AND PHYSICAL CHIEF COMPLAINT: Right shoulder pain. HISTORY OF PRESENT ILLNESS: Patient is a 70-year-old, right-hand dominant, retired male who presents with progressive right shoulder pain after a fall in May of this year. He is having pain with overhead use and at night. He also notes weakness. It bothers him daily. He denies previous problems with that shoulder. PAST MEDICAL HISTORY: Significant for arthritis and hypertension. [id number] diabetes. PAST SURGICAL HISTORY: Significant for cervical fusion and left rotator cuff repair. CURRENT MEDICATIONS: Avalide, Crestor, metformin. FAMILY HISTORY: Significant for heart disease. SOCIAL HISTORY: Significant for social alcohol use. He quit smoking in 1993. REVIEW OF SYSTEMS: Sixteen-point review of systems otherwise reviewed and noncontributory. PHYSICAL EXAMINATION: On examination, the patient is approximately 5 foot 5 inches, 230 pounds of endomorphic habitus. HEENT exam is nonfocal. NECK: Cervical spine shows limited motion. However, negative Spurling's. On examination of the right shoulder he is tender about the anterior subacromial space. He has mild subacromial crepitus. Active range of motion, forward elevation 145 degrees, external rotation with the arm at side 50 degrees, internal rotation to L2. Motor strength is 4+ or 5 for external rotation with arm at the side, 4/5 for abduction. Impingement test, Neer test, and Speed test are positive. His distal neurovascular exam appears intact in the right upper extremity. MRI report of the right shoulder 08/26/2020 shows a large rotator cuff tear with retraction. IMPRESSION: Right rotator cuff tear-symptomatic. RECOMMENDATIONS: I talked to the patient at length regarding his condition along with treatment options. At this point, he is quite symptomatic and limited because of pain and weakness despite conservative measures. After thorough discussion, he opts to proceed with surgery. We will plan to proceed with arthroscopic evaluation with possible rotator cuff repair/subacromial decompression/and possible biceps tenotomy. Risks and benefits were discussed at length in layman's terms. We will likely perform that as an outpatient procedure. MMODL / IJN: [id number] /
[2021-03-31] MEDS ORDERED: LACTATED RINGERS 1,000 ML IV SCH (06:34)
[2021-03-31] MEDS ORDERED: ONDANSETRON 4 MG/2 ML VIAL IVP ONE (06:34)
[2021-03-31] MEDS ORDERED: MIDAZOLAM 2 MG/2 ML VIAL IV PRN (06:34)
[2021-03-31] MEDS ORDERED: DEXAMETHASONE SOD PHOSPHATE 4 MG/ML 1 ML VIAL IV ONE (06:34)
[2021-03-31] MEDS ORDERED: HYDROmorphone 0.5 MG/0.5 ML SYRINGE IVP PRN (07:00)
[2021-03-31 07:06] LABS: Glucose,Whole Blood 126 mg/dL (75-99)
[2021-03-31] MEDS ORDERED: MIDAZOLAM 2 MG/2 ML VIAL IVP ONE (07:22)
[2021-03-31] MEDS ORDERED: LIDOCAINE 1% INJ 10MG/ML (20 ML MDV) ONE (07:57)
[2021-03-31] MEDS ORDERED: PROPOFOL 10 MG/ML 20 ML VIAL IV ONE (07:57)
[2021-03-31] MEDS ORDERED: fentaNYL (PF) 50 MCG/ML 2 ML AMP ONE (07:57)
[2021-03-31] MEDS ORDERED: SUCCINYLCHOLINE CHLORIDE 100 MG/5 ML SYR IV ONE (07:57)
[2021-03-31] MEDS ORDERED: SODIUM CHLORIDE 0.9% (PF) 10 ML VIAL ONE (07:57)
[2021-03-31] MEDS ORDERED: PHENYLEPHRINE-0.9% NACL SYG 1,000 MCG/10 ML SYRINGE ONE (07:57)
[2021-03-31] MEDS ORDERED: ROPIVACAINE 5 MG/ML 30 ML VIAL ONE (07:57)
[2021-03-31] MEDS ORDERED: EPINEPHrine (PF) 1 ML in SODIUM CHLORIDE 0.9% IRRIGATIO 3,000 ML IRRIGATION ONE ×8 (07:58)
--- NOTE | 2021-03-31 08:50 | P.ANPRN ---
Procedure Note - Anesthesia - Nerve Block Performed Right Interscalene Time Out Performed: Yes (:20) Date of Procedure: 03/31/21 Procedure Start Time: Procedure Stop Time: : Location of Patient: PreOp Indication: Acute Post-Operative Pain, Requested by Surgeon (Dr Reese) Sedation Type: Sedate with meaningful contact maintained Preparation: Sterile Prep Position: Supine Catheter: None Needle Types: Pajunk Needle Gauge: Other (see comment) (22g) Ultrasound used to visualize needle placement: Yes Ultrasound used to observe medication spread: Yes Injectate: 0.5% Ropivacaine (see comment for volume) (20cc) Blood Aspirated: No Pain Paresthesia on Injection Noted: No Resistance on Injection: Normal Image Stored and Saved: Yes Events: Uneventful and Well Tolerated
[2021-03-31] MEDS ORDERED: LACTATED RINGERS 1,000 ML IV ONE (09:34)
--- NOTE | 2021-03-31 09:36 | P.OP ---
Date of Procedure: 03/31/21 Preoperative Diagnosis: Symptomatic right rotator cuff tear Postoperative Diagnosis: Same in addition to a high-grade partial-thickness tear long head of the proximal biceps Procedure(s) Performed: Right shoulder arthroscopic subacromial decompression/biceps tenotomy/rotator cuff repair Implants: Arthrex 4.75 mm swivel lock anchor 2, 5.5 mm swivel lock anchor 2 [facility] Surgeon: Malik Reese Television Anchor #1: Hilton Ware Estimated Blood Loss (ml): 10 Pathology: none sent Condition: stable Disposition: PACU Indications for Procedure: The patient's a 70-year-old male who presents after a fall earlier this year with a symptomatic right rotator cuff tear despite initial conservative measures. A discussion of the risks and benefits of operative intervention versus continued conservative measures made with patient. He opted to proceed with surgery. Operative risks to include infection, neurovascular injury, tendon rerupture, postoperative stiffness, possible need for subsequent procedures was discussed. Informed consent was obtained. Operative Findings: As below Description of Procedure: The patient was brought to the operating room, and after induction of general anesthesia was placed in a beachchair position. A preoperative interscalene block was placed for postoperative analgesia. I examined the right shoulder. There was no gross block to passive motion or gross glenohumeral instability. The right upper extremity was prepped and draped in normal fashion. The bony outlines the acromion, distal clavicle, and coracoid process were outlined with a skin marker. The glenohumeral joint was inflated with 50 mL of saline utilizing a spinal needle from posterior approach. A posterior portal was made through a 5 mm skin incision 1 cm medial and inferior to the posterior lateral border time. A blunt trocar was used to easily into the joint. Diagnostic arthroscopy was performed. An anterior portal was made just lateral to the co racoid process entering the joint above the subscapularis tendon. The subscapularis tendon appeared to be intact. Anterior labrum was intact. The inferior recess was inspected. The posterior labrum was intact. There was a high-grade partial-thickness tear of the long head of the biceps involving interarticular portion. It was elected to proceed with release at this point. This was released from the superior labrum with electrocautery and was allowed to retract to the bicipital groove. On inspection the rotator cuff, a 4 cm tear was noted involving the supraspinatus and infraspinatus with some retraction. A lateral portal was made 2 centimeters inferior to the anterior lateral border of the acromion. The rotator cuff was then mobilized with a traction suture. This was then easily brought back to the greater tuberosity. The soft tissue on the undersurface of the acromion was debrided with a motorized shaver and electrocautery clearly defining the anterior medial and lateral borders as well as the distal clavicle. An anterior inferior acromioplasty was performed with a motorized ayden starting anterolateral, then extending this posteriorly, then extending this medially. I converted to a flat acromion and this was verified in the posterior and lateral viewing portals. The greater tuberosity was lightly decorticating with a shaver down to a bleeding bony surface. An accessory superior lateral portals made just off the lateral edge of the acromion for anchor placement. 2 anchors were then placed just off the articular surface with the appropriate starting awl. 4.75 mm anchors preloaded with #2 fiber tape were placed. Good purchase was obtained. These fiber tapes were then passed the rotator cuff with a scorpion suture passer. A lateral row was created crisscrossing these tapes. 5.5 mm swivel lock anchors x 2 were placed laterally. Good purchase was obtained. Final arthroscopic view showed adequate compression at the footprint. The arthroscope was then removed. The portals were closed with simple 3-0 nylon sutures. A sterile dressing was applied in addition to an abductor brace. The patient was then awoken from general anesthesia and transferred to recovery room in good condition. Blood loss was estimated at 10 mL. No complications were incurred. Sponge and needle counts were correct in the case. Hilton PATTERSON assisted and the major components of the case to include arm positioning, anchor placement, and rotator cuff repair.
[2021-03-31 09:48] VITALS: TEMP 97.6
[2021-03-31 10:31] VITALS: RESP 20
[2021-03-31 11:18] VITALS: BP 123/70; PULSE 68
== END 2021-03-31 11:15 | disposition home or self-care (01) ==
LOC: OR 06:06
PROVIDERS: ATTEND Orthopaedic Surgery
DX: M75.101 Unspecified rotator cuff tear or rupture of right shoulder, not specified as traumatic (principal)
CPT/HCPCS: 64415; 76942; C1713 ×3; C1894; J2250; J1100; J0690; J2405; J0171; J2001; J3010; J2795; J2370; J0330; J2704

== ENCOUNTER → 2021-07-20 | Outpatient (CLI) | payer MEDICARE | END | disposition home or self-care (01) | LOC: LABWHC1 13:24 | PROVIDERS: ATTEND Urology | DX: C61 Malignant neoplasm of prostate (principal) | CPT/HCPCS: 36415; 84153 ==

== ENCOUNTER → 2022-01-12 | Outpatient (CLI) | payer MEDICARE ==
--- NOTE | 2022-01-12 09:57 | XR ---
EXAMINATION TYPE: XR chest 2V DATE OF EXAM: 01/12/2022 COMPARISON: 02/28/2013 INDICATION: Checkup asbestos exposure TECHNIQUE: Frontal and lateral views of the chest are obtained. FINDINGS: The heart size is normal. The pulmonary vasculature is normal. The lungs are clear. There is hyperinflation and flattening of diaphragms compatible with COPD. Some minimal increased density along the diaphragms best visualized on lateral projection could be some c alcification associated with asbestos exposure. On the frontal projection appear to be some periphera l upper lung pleural plaques, present previously and stable. No significant interval changes are michel dent. Small nodularities at the lung bases could be related to nipple shadows better visualized curre ntly. Repeat study with nipple markers could be performed. IMPRESSION: 1. Stable appearing pleural plaques and suspected calcification along the diaphragm. 2 suspected nipp le shadows. Repeat study with nipple markers could be performed.
== END | disposition home or self-care (01) ==
LOC: RADXRMAIN 08:45
PROVIDERS: ATTEND Internal Medicine Geriatric Medicine
DX: R05.9 Cough, unspecified (principal)
CPT/HCPCS: 71046

== ENCOUNTER → 2022-01-26 | Outpatient (CLI) | payer MEDICARE ==
--- NOTE | 2022-01-26 11:56 | XR ---
EXAMINATION TYPE: XR chest 2V DATE OF EXAM: 01/26/2022 COMPARISON: 01/12/2022 INDICATION: Abnormal prior chest TECHNIQUE: Frontal and lateral views of the chest are obtained. FINDINGS: The heart size is normal. The pulmonary vasculature is normal. Pleural plaques are within the mid and upper lung alston. No previous basilar nodules are not well vi sualized. Some faint partial visualization of the right nipple may be present. Nipple markers are uti lized. Small bilateral pleural effusions are present. IMPRESSION: 1. Small bilateral pleural effusions. 2. Pleural plaquing. 3. Previous basilar lung opacities are likely related to nipple shadow but is not well visualized on current study. No suspicious basilar nodules identified this time.
== END | disposition home or self-care (01) ==
LOC: RADXRMAIN 11:07
PROVIDERS: ATTEND Internal Medicine Geriatric Medicine
DX: J90 Pleural effusion, not elsewhere classified (principal)
CPT/HCPCS: 71046

== ENCOUNTER → 2022-02-13 | Outpatient (CLI) | payer MEDICARE | END | disposition home or self-care (01) | LOC: LABWHC1 09:22 | PROVIDERS: ATTEND Urology | DX: C61 Malignant neoplasm of prostate (principal) | CPT/HCPCS: 36415; 84153 ==

== ENCOUNTER → 2022-06-06 | Outpatient (CLI) | payer MEDICARE ==
--- NOTE | 2022-06-06 08:10 | US ---
EXAMINATION TYPE: US abdomen complete DATE OF EXAM: 06/06/2022 COMPARISON: Abdominal ultrasound 02/21/2017 CLINICAL HISTORY: R10.84 GENERALIZED ABDOMINAL PAIN. Abdominal pain, cholecystectomy TECHNIQUE: Multiple sonographic images of the abdomen are obtained. FINDINGS: EXAM MEASUREMENTS: Liver Length: 16.8 cm Gallbladder Wall: Surgically absent CBD: 0.6 cm Spleen: 13.4 cm Right Kidney: 11.2 x 5.1 x 5.5 cm Left Kidney: 12.2 x 5.3 x 6.0 cm BATH STEWARD NOTES: *Technical limitations due to large amount of overlying bowel content Pancreas: Obscured by bowel gas Liver: attenuating, heterogeneous Gallbladder: Surgically absent CBD: appears wnl, limited evaluation Spleen: upper limits of normal Right Kidney: no evidence of hydronephrosis Left Kidney: no evidence of hydronephrosis Upper IVC: wnl Abd Aorta: visualized portions appear wnl The liver demonstrates heterogenous increased attenuation without focal lesion identified. The intra hepatic portion of the IVC and proximal abdominal aorta are within normal limits. The gallbladder is surgically absent. Common bile duct is unremarkable. The pancreas is obscured by overlying bowel gas . The spleen is at the top end of normal for size. Kidneys are symmetric and free of hydronephrosis. No renal lesions are seen. IMPRESSION: 1. No acute process. 2. Hepatic steatosis. 3. Postcholecystectomy changes. 4. Spleen is at the top end normal for size.
== END | disposition home or self-care (01) ==
LOC: RADUSWWP 07:27
PROVIDERS: ATTEND Internal Medicine Geriatric Medicine
DX: K76.0 Fatty (change of) liver, not elsewhere classified (principal); Z90.49 Acquired absence of other specified parts of digestive tract
CPT/HCPCS: 76700

== ENCOUNTER → 2022-06-11 | Outpatient (CLI) | payer MEDICARE ==
--- NOTE | 2022-06-11 11:14 | XR ---
EXAMINATION TYPE: XR thoracic spine complete DATE OF EXAM: 06/11/2022 11:06 AM INDICATION: Patient age:Male; 71 years old; Reason for study: R52 pain; [facility]. COMPARISON: CT chest 04/23/2013. TECHNIQUE: 3 views of the thoracic spine in frontal, lateral, and swimmer's projections. FINDINGS: No evidence of acute fracture. No loss of vertebral body height. Multilevel mild degenerative disc di sease with disc space narrowing and endplate sclerosis. There is normal alignment of the thoracic lashonda tebral bodies. Partial visualization of anterior cervical fusion hardware. IMPRESSION: 1. No acute osseous pathology. 2. Mild multilevel degenerative disc disease.
== END | disposition home or self-care (01) ==
LOC: RADXRMAIN 10:49
PROVIDERS: ATTEND Internal Medicine Geriatric Medicine
DX: M51.34 Other intervertebral disc degeneration, thoracic region (principal); R10.84 Generalized abdominal pain
CPT/HCPCS: 72072

== ENCOUNTER → 2022-08-20 | Outpatient (CLI) | payer MEDICARE | END | disposition home or self-care (01) | LOC: LABWHC1 09:27 | PROVIDERS: ATTEND Urology | DX: C61 Malignant neoplasm of prostate (principal) | CPT/HCPCS: 36415; 84153 ==

== ENCOUNTER → 2022-10-12 | Outpatient (CLI) | payer MEDICARE ==
--- NOTE | 2022-10-12 10:13 | XR ---
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 FINDINGS: Calcified pleural plaques bilaterally are redemonstrated consistent with prior asbestos exp osure. There is no suspicious new focal air space opacity, pleural effusion, or pneumothorax seen. The cardiac silhouette size is stable and within normal limits. Anterior fusion plate in the lower ce rvical spine is redemonstrated. IMPRESSION: Chronic changes without acute pulmonary process.
[2022-10-12 10:35] LABS: African American GFR (CKD) >90 (>60 ml/min/1.73 sqM); Blood Urea Nitrogen 21 mg/dL (9-20); Non-African American GFR(CKD) >90 (>60 ml/min/1.73 sqM)
--- NOTE | 2022-10-12 11:04 | CT ---
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 CONTRAST: CT scan of the chest is performed with IV Contrast, patient injected with 100 mL of Isovue 300. FINDINGS: LUNGS: Calcified pleural plaques are redemonstrated compatible with asbestos related pleural disease. Stable scattered nodularity some calcified and some noncalcified. No new pulmonary nodules or masses . No evidence for infiltrate or volume loss. No pleural effusions present. MEDIASTINUM: There are no greater than 1 cm hilar or mediastinal lymph nodes. No pericardial effusi on is seen. Thoracic aorta is of normal caliber. The heart is not enlarged. UPPER ABDOMEN: No significant abnormality appreciated. OTHER: No additional significant abnormality is seen. IMPRESSION: 1. Asbestos related pleural disease is stable. 2. Calcified and noncalcified pulmonary nodularity
== END | disposition home or self-care (01) ==
LOC: RADCTMAIN 09:49
PROVIDERS: ATTEND Internal Medicine Geriatric Medicine
DX: J61 Pneumoconiosis due to asbestos and other mineral fibers (principal); J98.4 Other disorders of lung; R91.1 Solitary pulmonary nodule
CPT/HCPCS: 82565; 84520; 71046; 71260; 36415; Q9967

== ENCOUNTER 2022-11-04 13:39 | Emergency (ER) | payer MEDICARE ==
[2022-11-04 14:06] VITALS: RESP 18
[2022-11-04] MEDS ORDERED: LIDOCAINE 1% INJ 10MG/ML (30 ML VIAL-PF) SQ ONE (14:34)
[2022-11-04] MEDS ORDERED: DIPH,PERTUS(ACELL)TETVAC-LF 0.5 ML VIAL IM ONE (14:34)
--- NOTE | 2022-11-04 14:35 | ED ---
Wound/Laceration HPI - General Chief Complaint: Wound/Laceration Stated Complaint: Right finger laceration Time Seen by Provider: 11/04/22 14:22 Source: patient, RN notes reviewed Mode of arrival: ambulatory Limitations: no limitations - History of Present Illness Initial Comments: Patient is a 71-year-old male presented to the ER with chief complaint of a finger laceration. Patient was working on his stomach and while trying to retrieve a piece of wood from inside the water his third and fourth digits were scraped by a nail attached to wood. Patient reports numbness at the tip of his third digit. Denies painful movements or limited ROM. No other complaints at this time. - Related Data Home Medications Medication Instructions Recorded Confirmed Irbesartan/Hydrochlorothiazide 1 each PO QAM 06/21/14 09/14/22 [Avalide 300-12.5 mg Tablet] Rosuvastatin Calcium [Crestor] 20 mg PO QAM 06/21/14 09/14/22 Aspirin [Adult Low Dose Aspirin EC] 81 mg PO QAM 03/31/15 09/12/22 metFORMIN HCL [Glucophage] 500 mg PO QAM 03/29/17 09/14/22 Bimatoprost [Lumigan .01% Ophth 1 drop BOTH EYES HS 03/29/21 09/14/22 Soln] Previous Rx's Medication Instructions Recorded Amoxic-Pot Clav 875-125Mg 1 tab PO Q12HR #14 tab 11/04/22 [Augmentin 875-125] Allergies Allergy/AdvReac Type Severity Reaction Status Date / Time No Known Allergies Allergy Verified 11/04/22 14:06 Review of Systems ROS Statement: Those systems with pertinent positive or pertinent negative responses have been documented in the HPI. ROS Other: All systems not noted in ROS Statement are negative. 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 heart valve issue? History of Any Multi-Drug Resistant Organisms: None Reported Past Surgical History: Back Surgery, Cholecystectomy, Orthopedic Surgery, Prostate Surgery Additional Past Surgical History / Comment(s): Spinal fusion, Colonoscopy, L Rotator cuff surgery.Pain procedures, surgery on left thumb Past Anesthesia/Blood Transfusion Reactions: No Reported Reaction Past Psychological History: No Psychological Hx Reported Smoking Status: Never smoker Past Alcohol Use History: Occasional Past Drug Use History: None Reported - Past Family History Mother Family Medical History: No Reported History Course Vital Signs 11/04/22 11/04/22 13:59 15:18 Temperature 97.8 F 97.9 F Pulse Rate 78 71 Respiratory 18 18 Rate Blood Pressure 120/77 125/70 O2 Sat by Pulse 96 97 Oximetry Procedures - Laceration Laceration #1 Consent Obtained: verbal consent Indication: laceration Site: hand Size (cm): 2 Description: linear Depth: simple, single layer Anesthetic Used: lidocaine 1% Anesthesia Technique: local infiltration Pre-repair: wound explored, irrigated extensively, deep structures intact Type of Sutures: nylon Size of Sutures: 4-0 Number of Sutures: 6 Technique: simple, interrupted Patient Tolerated Procedure: well, no complications Medical Decision Making - Medical Decision Making Was pt. sent in by a medical professional or institution (, PA, SYSTEM SUPPORT ADMINISTRATOR, urgent care, hospital, or retirement...) When possible be specific @ -None Did you speak to anyone other than the patient for history (EMS, parent, family, police, friend...)? What history was obtained from this source @ -No Did you review nursing and triage notes (agree or disagree)? Why? @ -I reviewed and agree with nursing and triage notes Were old charts reviewed (outside hosp., previous admission, EMS record, old EKG, old radiological studies, urgent care reports/EKG's, retirement records)? Report findings @ -No old charts were reviewed Differential Diagnosis (chest pain, altered mental status, abdominal pain women, abdominal pain men, vaginal bleeding, weakness, fever, dyspnea, syncope, headache, dizziness, GI bleed, back pain, seizure, CVA, palpatations, mental health, musculoskeletal)? @ -Finger laceration EKG interpreted by me (3pts min.). @ -None X-rays interpreted by me (1pt min.). @ -None done CT interpreted by me (1pt min.). @ -None done U/S interpreted by me (1pt. min.). @ -None done What testing was considered but not performed or refused? (CT, X-rays, U/S, labs)? Why? @ -None What meds were considered but not given or refused? Why? @ -None Did you discuss the management of the patient with other professionals (professionals i.e. , PA, SYSTEM SUPPORT ADMINISTRATOR, lab, RT, psych nurse, social media marketer, house calls nurse, teacher, airfield services officer, leather case finisher)? Give summary @ -No Was smoking cessation discussed for >3mins.? @ -No Was critical care preformed (if so, how long)? @ -No Were there social determinants of health that impacted care today? How? (Homelessness, low income, unemployed, alcoholism, drug addiction, transportation, low edu. Level, literacy, decrease access to med. care, custodial, rehab)? @ -No Was there de-escalation of care discussed even if they declined (Discuss DNR or withdrawal of care, Hospice)? DNR status @ -No What co-morbidities impacted this encounter? (DM, HTN, Smoking, COPD, CAD, Cancer, CVA, ARF, Chemo, Hep., AIDS, mental health diagnosis, sleep apnea, morbid obesity)? @ -None Was patient admitted / discharged? Hospital course, mention meds given and route, prescriptions, significant lab abnormalities, going to OR and other pertinent info. @ -Discharge patient's tetanus is updated, patient lacerations were repaired patient was discharged on Augmentin for prophylaxis given nature of injury. Undiagnosed new problem with uncertain prognosis? @ -No Drug Therapy requiring intensive monitoring for toxicity (Heparin, Nitro, Insulin, Cardizem)? @ -No Were any procedures done? @ -No Diagnosis/symptom? @ -Finger laceration Acute, or Chronic, or Acute on Chronic? @ -Acute Uncomplicated (without systemic symptoms) or Complicated (systemic symptoms)? @ -Uncomplicated Side effects of treatment? @ -No Exacerbation, Progression, or Severe Exacerbation? @ -No Poses a threat to life or bodily function? How? (Chest pain, [place], SC, pneumonia, PE, COPD, DKA, ARF, appy, cholecystitis, CVA, Diverticulitis, Homicidal, Suicidal, threat to staff... and all critical care pts) @ -No Disposition Clinical Impression: Laceration of finger, right Disposition: HOME SELF-CARE Condition: Stable Instructions (If sedation given, give patient instructions): Care For Your Stitches (ED), Finger Laceration (ED) Additional Instructions: Have sutures removed in 10 days. Please return to the Emergency Department if symptoms worsen or any other concerns. Prescriptions: Amoxic-Pot Clav 875-125Mg [Augmentin 875-125] 1 tab PO Q12HR #14 tab Is patient prescribed a controlled substance at d/c from ED?: No Referrals: Boaz Meek MD [Primary Care Provider] - 1-2 days Time of Disposition: 15:04
[2022-11-04] MEDS ORDERED: BACITRACIN OINT 1 EACH PACKET TOPICAL ONE (15:06)
[2022-11-04 15:20] VITALS: BP 125/70; PULSE 71; TEMP 97.9
== END 2022-11-04 15:20 | disposition home or self-care (01) ==
LOC: EC 13:39
DX: S61.210A Laceration without foreign body of right index finger without damage to nail, initial encounter (principal); E11.9 Type 2 diabetes mellitus without complications; E78.5 Hyperlipidemia, unspecified; I10 Essential (primary) hypertension; Z79.82 Long term (current) use of aspirin; Z79.899 Other long term (current) drug therapy; Z79.84 Long term (current) use of oral hypoglycemic drugs; Z23 Encounter for immunization; W45.0XXA Nail entering through skin, initial encounter
CPT/HCPCS: 90715; 99282; 90471; 12001; J2001

== ENCOUNTER → 2023-01-09 | Outpatient (CLI) | payer MEDICARE ==
[2023-01-09 11:12] VITALS: BP 134/86; PULSE 71; RESP 16; TEMP 98.4
--- NOTE | 2023-01-09 12:39 | XR ---
EXAMINATION TYPE: XR lumbar spine 2 or 3V DATE OF EXAM: 01/09/2023 Comparison: None Clinical History: 72-year-old male M51.36 Findings: 5 lumbar type vertebral bodies. Mild to moderate degenerative disc disease mid to lower lumbar spine. Degenerative trace grade 1 retrolisthesis L3-L4 and grade 1 anterolisthesis L4-L5. Vertebral body he ights are preserved. Impression: Mild multilevel degenerative disc disease, more mild to moderate in the mid to lower lumbar spine. Fa cet arthropathy lower lumbar spine with degenerative trace grade 1 spondylolisthesis at L3-L4 and L4- L5.
== END ==
LOC: PNWHC3 09:16
PROVIDERS: ATTEND Anesthesiology
DX: M51.36 Other intervertebral disc degeneration, lumbar region (principal); M43.16 Spondylolisthesis, lumbar region; M47.816 Spondylosis without myelopathy or radiculopathy, lumbar region; Z87.891 Personal history of nicotine dependence
CPT/HCPCS: 72100; G0463; 99211

== ENCOUNTER → 2023-01-12 | Outpatient (CLI) | payer MEDICARE ==
--- NOTE | 2023-01-12 19:45 | MR ---
EXAMINATION TYPE: MR lumbar spine wo con DATE OF EXAM: 01/12/2023 1:55 PM COMPARISON: 01/28/2018. CLINICAL INDICATION: Male, 72 years old with history of M51.36 OTHER INTERVERTEBRAL DISC DEGENERATION ,; Low back pain into rt side buttocks/leg TECHNIQUE: Multi planar, multi sequence imaging was performed utilizing: T1-weighted, T2-weighted, a nd turbo inversion recovery imaging of the lumbar spine. IV Contrast: None. FINDINGS: Alignment: The lumbar vertebral bodies have preserved heights with grade 1 anterolisthesis of L4 on L 5. Cord: The conus medullaris and the distal spinal cord appear unremarkable with regards to their signa l intensity and morphology. Bones/Discs: Multilevel disc degeneration changes throughout the spine with Modic endplate changes, f acet joint arthropathy, disc desiccation. Disc space narrowing and Schmorl's nodes. High T1 high T2 s ignal vertebral body hemangiomas. There is Modic end plate changes worse at L3-L4. T12-L1: No evidence of significant spinal canal stenosis or neural foraminal stenosis. L1-L2: No evidence of significant spinal canal stenosis or neural foraminal stenosis. L2-L3: Disc bulge and facet joint arthropathy result in mild spinal canal and mild bilateral neural f oraminal stenosis. L3-L4: Eccentric right Disc bulge and facet joint arthropathy result in mild spinal canal and mild bi lateral neural foraminal stenosis. L4-L5: Disc uncovering from grade 1 anterolisthesis with superimposed central disc protrusion without significant spinal canal stenosis. Additionally, Facet joint arthropathy with moderate spinal canal stenosis and mild bilateral neural foraminal stenosis. Superimposed central disc protrusion without s ignificant spinal canal stenosis. L5-S1: The disc is rounded posterior morphology without significant spinal canal stenosis. Facet join t arthropathy with mild neural foraminal stenosis. No significant spinal canal or neural foraminal stenosis in the remainder of the visualized levels. Other findings: None. IMPRESSION: 1. No definitive evidence of disc herniation or significant spinal canal stenosis. 2. Moderate disc degeneration with associated osteoarthritic changes with grade 1 anterolisthesis L4 on L5 with at least moderate spinal canal stenosis. There is suspected superimposed central herniatio n at this level.
== END | disposition home or self-care (01) ==
LOC: RADMRIMAIN 13:16
PROVIDERS: ATTEND Specialist
DX: M51.36 Other intervertebral disc degeneration, lumbar region (principal); M47.816 Spondylosis without myelopathy or radiculopathy, lumbar region; M43.16 Spondylolisthesis, lumbar region; M48.061 Spinal stenosis, lumbar region without neurogenic claudication
CPT/HCPCS: 72148

== ENCOUNTER → 2023-02-19 | Outpatient (CLI) | payer MEDICARE | END | disposition home or self-care (01) | LOC: LABWHC1 10:58 | PROVIDERS: ATTEND Urology | DX: C61 Malignant neoplasm of prostate (principal) | CPT/HCPCS: 36415; 84153 ==

== ENCOUNTER 2023-03-08 05:43 | Day surgery (SDC) | payer MEDICARE ==
[2023-03-08] MEDS ORDERED: LACTATED RINGERS 1,000 ML IV SCH (05:58)
[2023-03-08] MEDS ORDERED: LACTATED RINGERS 1,000 ML IV ONE (06:10)
[2023-03-08 06:22] LABS: Glucose,Whole Blood 96 mg/dL (70-110)
[2023-03-08 06:36] VITALS: TEMP 98
[2023-03-08] MEDS ORDERED: fentaNYL (PF) 50 MCG/ML 2 ML AMP ONE (06:56)
[2023-03-08] MEDS ORDERED: MIDAZOLAM 2 MG/2 ML VIAL ONE (06:56)
[2023-03-08] MEDS ORDERED: ROPIVACAINE 5MG/ML 20ML VIAL ONE (06:58)
[2023-03-08] MEDS ORDERED: methylPREDNISolone ACETATE 40 MG/ML 1 ML VIAL ONE (06:58)
--- NOTE | 2023-03-08 07:23 | P.PCN ---
Date of Procedure: 03/08/23 Procedure(s) Performed: PREOPERATIVE DIAGNOSIS: 1-Lumbar Spondylosis with Facet Arthropathy without myelopathy. 2- Lumber degenerative disc disease. POSTOPERATIVE DIAGNOSIS: 1- Lumbar Spondylosis with Facet Arthropathy without myelopathy. 2- Lumber degenerative disc disease. PROCEDURES : Bilateral Radiofrequency thermocoagulation, L3 , L4 , and L5 medial branch, with fluoroscopic guidance (fluoroscopy images available in the radiology department) ( to denervate the facet joint at L4-5 ,and L5-S1 levels ) ANESTHESIA: Monitered anesthesia care as per anesthesia department. EBL: Minimal PROCEDURE INDICATION: The patient with low back pain secondary to lumbar facet arthropathy who had more than 80% relief of her pain with previous diagnostic lumbar medial branch block with bupivacaine. PROCEDURE DESCRIPTION / TECHNIQUE: The patient was seen and identified in the preoperative area. Risks, benefits, complications, including but not limited to risk of infection ,bleeding , allergic reactions to the medications and no complete pain releife , and alternatives were discussed with the patient, the patient agreed to proceed with the procedure and signed the consent. IV was started. Vital signs remained stable throughout the procedure. Patient was taken to the OR and time out was completed. The patient was placed in the prone position on the procedure table. The lumber area was prepped and draped in the usual sterile fashion. . Vital signs were closely monitored during the procedure .IV sedation was used during the procedure to decrease patients anxiety. Using AP and then oblique fluoroscopy, the ``eye of the Neal dog corresponding to the connection between the superior and transverse articular processes of right L3, L4, and L5 were identified, marked, and localized with 1% lidocaine. Subsequently, a 18 [id number] radiofrequency cannula with a 10-mm active tip was advanced guided by fluoroscopy to each of the``eyes of the Neal dog at right L3, L4, and L5. Each site then underwent sensory testing at 50 Hz and 0 to 1 volt and motor testing at 2.5 Hz and 0 to 3 volt with local stimulation, but no radicular symptoms down the legs. Thereafter each sites underwent radiofrequency thermocoagulation at 80 degrees celsius for 90 seconds after injecting 0.5 ml of PF Ropivacaine 1ml, then after the thermocoagulation done , 1 ml of the block solution containing Depo-Medrol 20 mg and 3 ml of Ropivacaine 0.5% was injected at the right L3 , L4 , and L5 , levels after negative aspiration of CSF and blood and with no paresthesias. Cannulas were retracted while injecting lidocaine 1% until the needle is out. The same procedure was repeated at the level of Left L3, L4, and L5 levels. At the end of the procedure, the skin was cleansed and bandages were applied. COMPLICATIONS: No acute complications. DISPOSITION / PLANS: The patient was placed in a supine position and transferred to the recovery area in a stable condition for observation and was discharged from the recovery room after meeting discharge criteria. Home discharge instructions given to the patient by the staff. The patient was reexamined prior to discharge. The patient will schedule a follow up in the clinic in 2-4 weeks.
[2023-03-08] MEDS ORDERED: IV FLUID CONTINUATION 1,000 ML IV ONE (07:25)
--- NOTE | 2023-03-08 07:49 | FL ---
Intraoperative/procedural fluoroscopic services were provided bilateral RF lumbar. Total fluoroscopy time is 12.4 seconds with a total of 9 submitted images to PACS. Total DAP [id number] [id number]. Please see the operative note for further details.
[2023-03-08 08:02] VITALS: BP 147/90; PULSE 69; RESP 16
== END 2023-03-08 07:55 | disposition home or self-care (01) ==
LOC: ORPAIN 05:43
PROVIDERS: ATTEND Specialist
DX: M47.816 Spondylosis without myelopathy or radiculopathy, lumbar region (principal); M51.36 Other intervertebral disc degeneration, lumbar region; I10 Essential (primary) hypertension; E78.5 Hyperlipidemia, unspecified; E11.9 Type 2 diabetes mellitus without complications; Z79.82 Long term (current) use of aspirin; Z79.899 Other long term (current) drug therapy
CPT/HCPCS: 64635; 64636 ×2; J2250; J1030; J3010; J2795

== ENCOUNTER → 2023-03-11 | Outpatient (CLI) | payer MEDICARE ==
--- NOTE | 2023-03-12 09:55 | MR ---
EXAMINATION TYPE: MR Prostate wo/w con DATE OF EXAM: 03/11/2023 9:32 AM COMPARISON: None. CLINICAL INDICATION:Male, 72 years old with history of C61 prostate ca; Prostate cancer. TECHNIQUE: Multi-planar, multi-sequence imaging of the pelvis is performed prior to and following the uncomplicated administration of bolus intravenous gadolinium. CONTRAST: 9 Gadavist Interpretive Criteria: PI-RADS v2.1 SERUM PSA: 5.5 on 02/19/2023. 4.6 on 08/20/2022. 3.3 on 02/13/2022. 3.01 07/20/2021. SURGICAL PATHOLOGY: 10/02/2022 benign 01/12/2020, positive in the left mid and left apex 3+4=7 and 3+3=6 [place] respectively FINDINGS: Prostatic dimensions: 5.5 x 5.6 x 4.3 cm. Ellipsoid Volume: 69.35 (PSA density=0.08 ng/mL/mL) CENTRAL GLAND (Central and Transition Zones/CZ+TZ): Multiple bilateral, heterogenous appearing hypertrophic stromal nodules, without suspicious lesion. M edian lobe hypertrophy with protrusion into the base of the bladder. (PI-RADS 2) PERIPHERAL ZONE (PZ): Bilateral linear, indistinct wedgelike areas of low ADC, and low T2 signal, No evidence of masslike a bnormality, or localized perfusional hypervascularity, to further suggest a focus of clinically signi ficant prostate cancer. (PI-RADS 2) SEMINAL VESICLES (SV): Symmetric and unremarkable. PERIPROSTATIC TISSUES: Unremarkable. LYMPH NODES: No enlarged pelvic lymph node. REMAINING PELVIS: Circumferential bladder wall thickening with trabeculations likely secondary to chronic bladder outfl ow obstruction. No abnormal free or organized intrapelvic fluid collection. No pathologic bowel dilation or mural thickening. Bilateral fat containing inguinal hernias. OSSEOUS STRUCTURES: No suspicious osseous abnormality. IMPRESSION: 1. No specific features for high-risk prostate cancer. Maximum PI-RADS score: 2. Moderate BPH, estimated gland volume 69.35 mL. 3. Circumferential bladder wall thickening likely secondary to chronic bladder outlet obstruction.
== END | disposition home or self-care (01) ==
LOC: RADMRIMAIN 08:25
PROVIDERS: ATTEND Urology
DX: C61 Malignant neoplasm of prostate (principal); N40.0 Benign prostatic hyperplasia without lower urinary tract symptoms; N32.89 Other specified disorders of bladder
CPT/HCPCS: 72197; A9585

== ENCOUNTER → 2023-03-27 | Outpatient (CLI) | payer MEDICARE ==
[2023-03-27 08:53] VITALS: BP 151/84; PULSE 89; RESP 16; TEMP 98.5
--- NOTE | 2023-03-27 14:40 | P.PAINPG ---
PQRS Measure Charge Sheet Comment: A 72 yr old male with a history of severe and chronic LBP secondary to lumbar DDD and spondylosis with facet arthropathy without myelopathy presents today for LBP s/p BL RFA L4-L5, L5-S1. Pt states he experienced 100% pain relief s/p procedure. Pain level is provoked at 0 /10 in intensity, constant, localized in the lumbar spine, and was predominantly axial. Pain has no provocative factors. Pain is alleviated with injections, heat, ice, use of a lumbar support brace, medications, Lidocaine topical, repositioning and rest. PT was x 3 wks in 2019 but was ineffective and was discontinued by the therapist but followed up w physician guided stretches daily since 2019. Oswestry axial pain score at 12. Interventional pain procedures completed include BL RFA L2-L5 (May 2020, Feb 2023), ESIs L4-5 x2 Patient is currently on Ibu Patient denies any side effects of the medication(s), denies excessive drow siness or sleepiness, denies suicidal ideation and reports that the current pain medication is helping to control the pain and improve activities of daily living. Patient denies any motor or sensory deficits. Patient denies any fever or night sweats, denies any change in the bowel movements or urination. Physical Examination: -Constitutional: Cooperative. Not in acute distress . - Neurologic: Cranial nerve II to XII intact. No focal neurological deficits. - Psychatric: Alert & oriented x 3. Matching mood & appropriate affect. Judgment and insight intact. - Musculoskeletal: Cervical spine: Muscle bulk/ tone/ strength in the bilateral upper extremities normal Vertebral body tenderness to palpation over Spurling test positive Distraction test positive Facet loading test positive TTP Thoracic spine Muscle bulk / tone/ strength in the bilateral paraspinal muscles normal Vertebral body tender to palpation over Facet loading test positive TTP Lumbar spine: Motor bulk/ tone/ strength lower extremities , thigh and legs : 5/5 Deep tendon reflexes : Normal Knee Jerk. Normal Ankle Jerk . Vertebral body tenderness to palpation over Wang Test positive Lumbar Facet Loading Test positive over BL L4-L5, L5-S1 Straight Leg Raise: positive at 30 degrees right side/ left side Gaenslen's Test positive Sacral spine : Severe tenderness over the Sacroiliac joint: right side / left side Range of motion: Flexion of the lumbar spine <60 degrees Range of motion: Extension of the lumbar spine <20 degrees Gaenslen's Test positive right side / left side Sadiq test: positive right side / left side Thigh Thrust Test positive right side / left side Sacral Thrust Test positive right side / left side Assessment and plan: Chronic LBP secondary to lumbar DDD, spondylosis with facet arthropathy without myelopathy Will manage residual pain and may RTC on an as needed basis. All questions answered. I have spent less than 30 minutes on patient care today. Dr Clarke was available by phone for the evaluation of this patient. The time was used to review the medical records including relevant urine studies and Prescription history (MAPs), review of the available imaging, evaluation and examination of the patient, coordination of care with the medical staff and if applicable referring physicians, as well as creation of the medical record PQRS Narrative: Smoking Status Former smoker Hx Alcohol Use (MH) No Home Medications: Ambulatory Orders Irbesartan/Hydrochlorothiazide [Avalide 300-12.5 mg Tablet] 1 each PO QAM 06/21/14 Rosuvastatin Calcium [Crestor] 20 mg PO QAM 06/21/14 Aspirin [Adult Low Dose Aspirin EC] 81 mg PO QAM 03/31/15 metFORMIN HCL [Glucophage] 500 mg PO QAM 03/29/17 Semaglutide [Ozempic] 0.5 mg SQ WEEKLY 01/09/23 Controlled Substance Measures - Controlled Substance Measures Is patient prescribed a controlled substance at discharge?: No
== END ==
LOC: PNWHC3 08:21
PROVIDERS: ATTEND Specialist
DX: M51.37 Other intervertebral disc degeneration, lumbosacral region (principal); M47.817 Spondylosis without myelopathy or radiculopathy, lumbosacral region; G89.29 Other chronic pain; Z87.891 Personal history of nicotine dependence; Z79.82 Long term (current) use of aspirin
CPT/HCPCS: 99211

== ENCOUNTER → 2023-06-19 | Outpatient (CLI) | payer MEDICARE ==
[2023-06-19 15:49] LABS: Basophils # (A) 0.04 X 10*3/uL (0.00-0.10); Basophils % (A) 0.6 %; Eosinophils # (A) 0.08 X 10*3/uL (0.04-0.35); Eosinophils % (A) 1.2 %; HCT 47.6 % (39.6-50.0); HGB 16.1 g/dL (13.0-17.0); Lymphocytes # (A) 1.74 X 10*3/uL (0.90-5.00); Lymphocytes % (A) 26.6 %; MCHC 33.8 g/dL (32.0-37.0); MCV 91.5 FL (80.0-97.0); Mean Platelet Volume 9.6 FL (9.5-12.2); Monocytes # (A) 0.55 X 10*3/uL (0.20-1.00); Monocytes % (A) 8.4 %; NRBC Per 100 WBC 0 X 10*3/uL (0.00-0.01); Neutrophils % (A) 62.9 %; Platelet Count 290 X 10*3/uL (140-440); RDW 12.4 % (11.5-14.5); WBC 6.53 X 10*3/uL (4.50-10.00)
[2023-06-19 16:11] LABS: ALT 50 U/L (10-49); AST 23 U/L (14-35); Alkaline Phosphatase 71 U/L (41-126); BUN/Creat Ratio 26.12 Ratio (12.00-20.00); Blood Urea Nitrogen 20.9 mg/dL (9.0-27.0); Calcium 10.2 mg/dL (8.7-10.3); Carbon Dioxide 28.4 mmol/L (21.6-31.8); Chloride 101 mmol/L (96-109); Chol/HDL Ratio 2.99 Ratio; Globulin 2.5 g/dL (1.6-3.3); Glucose 100 mg/dL (70-110); LDL Cholesterol,Calculated 77.7 mg/dL (0.0-131.0); Potassium 4.2 mmol/L (3.5-5.5); Sodium 141 mmol/L (135-145); Total Bilirubin 0.7 mg/dL (0.3-1.2); Total Protein 7.5 g/dL (6.2-8.2); VLDL Calculation 14.82 mg/dL (5.00-40.00)
== END | disposition home or self-care (01) ==
LOC: LABWHC1 10:43
PROVIDERS: ATTEND Internal Medicine Geriatric Medicine
DX: E11.65 Type 2 diabetes mellitus with hyperglycemia (principal); K75.81 Nonalcoholic steatohepatitis (NASH)
CPT/HCPCS: 36415; 80053; 80061; 83036; 85025

== ENCOUNTER → 2023-08-07 | Outpatient (CLI) | payer MEDICARE | END | disposition home or self-care (01) | LOC: LABWHC1 13:47 | PROVIDERS: ATTEND Urology | DX: C61 Malignant neoplasm of prostate (principal) | CPT/HCPCS: 36415; 84153 ==

== ENCOUNTER → 2023-11-22 | Outpatient (CLI) | payer MEDICARE ==
[2023-11-22 15:45] LABS: ALT 62 U/L (10-49); AST 45 U/L (14-35); Albumin 4.9 g/dL (3.8-4.9); Albumin/Globulin Ratio 2.04 Ratio (1.60-3.17); Alkaline Phosphatase 81 U/L (41-126); BUN/Creat Ratio 34.71 Ratio (12.00-20.00); Blood Urea Nitrogen 24.3 mg/dL (9.0-27.0); Calcium 9.7 mg/dL (8.7-10.3); Carbon Dioxide 27.3 mmol/L (21.6-31.8); Chloride 99 mmol/L (96-109); Chol/HDL Ratio 2.42 Ratio; Globulin 2.4 g/dL (1.6-3.3); Glucose 105 mg/dL (70-110); LDL Cholesterol,Calculated 85.4 mg/dL (0.0-131.0); Potassium 4.5 mmol/L (3.5-5.5); Sodium 141 mmol/L (135-145); Total Bilirubin 0.7 mg/dL (0.3-1.2); Total Protein 7.3 g/dL (6.2-8.2)
[2023-11-22 16:02] LABS: Basophils # (A) 0.06 X 10*3/uL (0.00-0.10); Basophils % (A) 0.9 %; Eosinophils # (A) 0.15 X 10*3/uL (0.04-0.35); Eosinophils % (A) 2.1 %; HCT 46.7 % (39.6-50.0); HGB 15.6 g/dL (13.0-17.0); Lymphocytes # (A) 1.99 X 10*3/uL (0.90-5.00); Lymphocytes % (A) 28.5 %; MCHC 33.4 g/dL (32.0-37.0); MCV 92.8 FL (80.0-97.0); Mean Platelet Volume 9.4 FL (9.5-12.2); Monocytes # (A) 0.46 X 10*3/uL (0.20-1.00); Monocytes % (A) 6.6 %; NRBC Per 100 WBC 0 X 10*3/uL (0.00-0.01); Neutrophils # (A) 4.29 X 10*3/uL (1.80-7.70); Neutrophils % (A) 61.3 %; Platelet Count 261 X 10*3/uL (140-440); RBC 5.03 X 10*6/uL (4.40-5.60); RDW 13.3 % (11.5-14.5); WBC 6.99 X 10*3/uL (4.50-10.00)
== END | disposition home or self-care (01) ==
LOC: LABWHC1 10:33
PROVIDERS: ATTEND Internal Medicine Geriatric Medicine
DX: Z00.00 Encounter for general adult medical examination without abnormal findings (principal); K75.81 Nonalcoholic steatohepatitis (NASH); E11.65 Type 2 diabetes mellitus with hyperglycemia
CPT/HCPCS: 36415; 80053; 80061; 82043; 82570; 83036; 84443; 85025

== ENCOUNTER → 2024-04-29 | Outpatient (CLI) | payer MEDICARE | END | disposition home or self-care (01) | LOC: LABWHC1 12:10 | PROVIDERS: ATTEND Urology | DX: C61 Malignant neoplasm of prostate (principal) | CPT/HCPCS: 36415; 84153 ==

== ENCOUNTER → 2024-09-03 | Outpatient (CLI) | payer MEDICARE | END | disposition home or self-care (01) | LOC: LABWHC1 07:37 | PROVIDERS: ATTEND Urology | DX: C61 Malignant neoplasm of prostate (principal) | CPT/HCPCS: 36415; 84153 ==

== ENCOUNTER 2024-10-22 07:10 | Day surgery (SDC) | payer MEDICARE ==
[2024-10-21 11:18] VITALS: BMI 33.4
[2024-10-22 07:37] VITALS: TEMP 98
[2024-10-22] MEDS: IV FLUID CONTINUATION 1,000 ML IV ONE (07:46)
[2024-10-22] MEDS: LACTATED RINGERS 1,000 ML IV SCH (07:47)
[2024-10-22 07:51] LABS: Glucose,Whole Blood 114 mg/dL (70-110)
[2024-10-22] MEDS ORDERED: PROPOFOL 10 MG/ML 20 ML VIAL IV ONE (08:12)
--- NOTE | 2024-10-22 08:30 | P.GSHP ---
History of Present Illness H&P Date: 10/22/24 Chief Complaint: Screening colonoscopy This a 73-year-old male presents today for screening colonoscopy. Patient denies any significant GI complaints. 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 heart valve issue?, Dr peres. History of Any Multi-Drug Resistant Organisms: None Reported Past Surgical History: Back Surgery, Cholecystectomy, Orthopedic Surgery, Prostate Surgery Additional Past Surgical History / Comment(s): Spinal fusion, colonoscopy, bilteral rotator cuff repair, pain procedures, surgery on left thumb. Past Anesthesia/Blood Transfusion Reactions: No Reported Reaction Smoking Status: Former smoker - Past Family History Mother Family Medical History: No Reported History Medications and Allergies Home Medications Medication Instructions Recorded Confirmed Type Irbesartan/Hydrochlorothiazide 1 each PO QAM 06/21/14 10/21/24 History [Avalide 300-12.5 mg Tablet] Rosuvastatin Calcium [Crestor] 20 mg PO QAM 06/21/14 10/21/24 History Aspirin [Adult Low Dose Aspirin EC] 81 mg PO QAM 03/31/15 10/21/24 History metFORMIN HCL [Glucophage] 500 mg PO QAM 03/29/17 10/21/24 History Semaglutide [Ozempic] 0.5 mg SQ WILKES 01/09/23 10/21/24 History Allergies Allergy/AdvReac Type Severity Reaction Status Date / Time No Known Allergies Allergy Verified 10/22/24 07:35 Surgical - Exam Vital Signs Temp Pulse Resp BP Pulse Ox 98 F 71 16 161/96 97 10/22/24 07:36 10/22/24 07:36 10/22/24 07:36 10/22/24 07:36 10/22/24 07:36 - General well developed, well nourished, no distress - Eyes PERRL - ENT normal pinna - Neck no masses - Respiratory normal expansion - Cardiovascular Rhythm: regular - Abdomen Abdomen: soft, non tender Results - Labs Abnormal Lab Results - Last 24 Hours (Table) 10/22/24 Range/Units 07:45 POC Glucose (mg/dL) 114 H (70-110) mg/dL Assessment and Plan Assessment: Will perform screening colonoscopy
--- NOTE | 2024-10-22 08:32 | P.OP ---
Date of Procedure: 10/22/24 Preoperative Diagnosis: Screening colonoscopy Postoperative Diagnosis: Normal colon Procedure(s) Performed: Screening colonoscopy Anesthesia: MAC Surgeon: Jj Gardner Pathology: none sent Condition: stable Disposition: PACU Description of Procedure: PROCEDURE: The patient was placed on the endoscopy table in the lateral position. Digital rectal examination was performed which revealed no abnormalities. The prostate was symmetrical without nodules. Flexible colonoscope was then placed in the patient's anus and passed throughout the entire colon. The ileocecal valve was visualized. The cecum, ascending, transverse, descending and sigmoid colon were normal. The rectum was normal as well. There were no masses, polyps or diverticula noted in the entire colon. SUMMARY OF FINDINGS: Normal colonoscopy
[2024-10-22 08:47] VITALS: BP 124/76; PULSE 68; RESP 16
== END 2024-10-22 09:03 | disposition home or self-care (01) ==
LOC: ORWHC2ENDO 07:10
PROVIDERS: ATTEND Surgery
DX: Z12.11 Encounter for screening for malignant neoplasm of colon (principal); I10 Essential (primary) hypertension; E11.9 Type 2 diabetes mellitus without complications; E78.5 Hyperlipidemia, unspecified; J61 Pneumoconiosis due to asbestos and other mineral fibers; N42.9 Disorder of prostate, unspecified; Z79.82 Long term (current) use of aspirin; Z79.85 Long-term (current) use of injectable non-insulin antidiabetic drugs; Z79.84 Long term (current) use of oral hypoglycemic drugs; Z79.899 Other long term (current) drug therapy; Z87.891 Personal history of nicotine dependence
CPT/HCPCS: J2704; G0121; 45378

== ENCOUNTER → 2024-11-25 | Outpatient (CLI) | payer MEDICARE ==
[2024-11-25 15:18] LABS: Basophils # (A) 0.07 X 10*3/uL (0.00-0.10); Basophils % (A) 0.8 %; Eosinophils # (A) 0.20 X 10*3/uL (0.04-0.35); Eosinophils % (A) 2.2 %; HCT 44.5 % (39.6-50.0); HGB 15.0 g/dL (13.0-17.0); Immature Grans, Automated 0.20 %; Lymphocytes # (A) 1.75 X 10*3/uL (0.90-5.00); Lymphocytes % (A) 19.6 %; MCH 31.4 pg (27.0-32.0); MCHC 33.7 g/dL (32.0-37.0); MCV 93.1 FL (80.0-97.0); Monocytes # (A) 0.62 X 10*3/uL (0.20-1.00); Monocytes % (A) 6.9 %; NRBC Per 100 WBC 0 X 10*3/uL (0.00-0.01); Neutrophils # (A) 6.27 X 10*3/uL (1.80-7.70); Neutrophils % (A) 70.3 %; Platelet Count 260 X 10*3/uL (140-440); RBC 4.78 X 10*6/uL (4.40-5.60); RDW 12.7 % (11.5-14.5); WBC 8.93 X 10*3/uL (4.50-10.00)
[2024-11-25 15:43] LABS: ALT 47 U/L (10-49); AST 32 U/L (14-35); Albumin 4.4 g/dL (3.8-4.9); Albumin/Globulin Ratio 1.76 Ratio (1.60-3.17); Alkaline Phosphatase 66 U/L (41-126); Anion Gap 12.90 mmol/L (4.00-12.00); BUN/Creat Ratio 32.57 Ratio (12.00-20.00); Blood Urea Nitrogen 22.8 mg/dL (9.0-27.0); Calcium 9.4 mg/dL (8.7-10.3); Carbon Dioxide 25.1 mmol/L (21.6-31.8); Chloride 102 mmol/L (96-109); Cholesterol 156.00 mg/dL (0.00-200.00); Globulin 2.5 g/dL (1.6-3.3); Glucose 107 mg/dL (70-110); HDL Cholesterol 62.30 mg/dL (40.00-60.00); LDL Cholesterol,Calculated 59.1 mg/dL (0.0-131.0); Potassium 4.2 mmol/L (3.5-5.5); Sodium 140 mmol/L (135-145); Total Protein 6.9 g/dL (6.2-8.2); Triglycerides 173.00 mg/dL (0.00-149.00); VLDL Calculation 34.60 mg/dL (5.00-40.00)
== END | disposition home or self-care (01) ==
LOC: LABWHC1 08:17
PROVIDERS: ATTEND Internal Medicine Geriatric Medicine
DX: Z00.00 Encounter for general adult medical examination without abnormal findings (principal); E11.65 Type 2 diabetes mellitus with hyperglycemia; K75.81 Nonalcoholic steatohepatitis (NASH)
CPT/HCPCS: 36415; 80053; 80061; 82043; 82570; 83036; 84443; 85025